=== PATIENT | female | born 1970 | race Caucasian/White ===

== ENCOUNTER 2016-05-30 14:24 | Emergency (ER) | payer OTHER ==
[~2016-05-30] VITALS: Ht 165.1 cm; Wt 104.3 kg
[~2016-05-30 14:24] MED LIST: BENZ100C PO; FLUT9.9S NS; IBUP-1007 PO; IBUP200C9 PO; SULF1TAB24 PO
[2016-05-30 14:37] VITALS: BP 131/62
[2016-05-30] MEDS ORDERED: KETOROLAC TROMETHAMINE 60 MG/2 ML SYRINGE. IM ONE (14:45)
[2016-05-30] MEDS ORDERED: IPRATRPIUM/ALBUTEROL 0.5/2.5MG 3 ML NEBU. NEB ONE (14:45)
--- NOTE | 2016-05-30 14:50 | PHYS DOC ---
Past Medical History Past Medical History: Hepatitis, Sinusitis Additional Past Medical Histor: hep C, stage 2 cirrhosis Past Surgical History: Alcohol Use: None Drug Use: Marijuana Adult General Chief Complaint Chief Complaint: COUGH HPI HPI 46 yo female presenting with worsening cough and now significant chest wall pain with deep breathing for the past 2 days. He was seen approximately one month ago and diagnosed with a viral URI for which a dose of nasal spray was ordered. Patient states now that she's had continued cough and mild shortness of breath secondary to pain with deep breathing. She states she is smoker but has not been smoking with her symptoms. She rates her pain a 6/10 on the pain scale made worse with deep breathing. She denies any significant PMH. Review of Systems Review of Systems Constitutional: Denies fever or chills [] Eyes: Denies change in visual acuity, redness, or eye pain [] HENT: Denies nasal congestion or sore throat [] Respiratory: Denies cough or shortness of breath [] Cardiovascular: No additional information not addressed in HPI [] GI: Denies abdominal pain, nausea, vomiting, bloody stools or diarrhea [] : Denies dysuria or hematuria [] Musculoskeletal: Denies back pain or joint pain [] Integument: Denies rash or skin lesions [] Neurologic: Denies headache, focal weakness or sensory changes [] Endocrine: Denies polyuria or polydipsia [] Current Medications Current Medications Current Medications Medications (Trade) Dose Ordered Sig/Rox Start Time Stop Time Status Last Admin Dose Admin Albuterol/ Ipratropium (Duoneb) 3 ml 1X ONCE 05/30/16 14:45 05/30/16 14:46 DC 05/30/16 15:13 3 ML Ketorolac Tromethamine (Toradol Im) 60 mg 1X ONCE 05/30/16 14:45 05/30/16 14:46 DC 05/30/16 14:52 60 MG Allergies Allergies Allergies Coded Allergies Type Severity Reaction Last Updated Verified Penicillins Allergy Severe Anaphylaxis 09/24/14 Yes morphine Allergy Intermediate "PARALYZED ME" 09/24/14 Yes Physical Exam Physical Exam Constitutional: Well developed, well nourished, no acute distress, non-toxic appearance. [] HENT: Normocephalic, atraumatic, bilateral external ears normal, oropharynx moist, no oral exudates, nose normal. [] Eyes: PERRLA, EOMI, conjunctiva normal, no discharge. [] Neck: Normal range of motion, no tenderness, supple, no stridor. [] Cardiovascular:Heart rate regular rhythm, no murmur [] Lungs & Thorax: Diminished bilaterally but no obvious respiratory distress [] Abdomen: Bowel sounds normal, soft, no tenderness, no masses, no pulsatile masses. [] Skin: Warm, dry, no erythema, no rash. [] Back: No tenderness, no CVA tenderness. [] Extremities: No tenderness, no cyanosis, no clubbing, ROM intact, no edema. [] Neurologic: Alert and oriented X 3, normal motor function, normal sensory function, no focal deficits noted. [] Psychologic: Affect normal, judgement normal, mood normal. [] Current Patient Data Vital Signs Vital Signs Date Time Temp Pulse Resp B/P Pulse Ox O2 Delivery O2 Flow Rate FiO2 05/30/16 15:14 95 Room Air 05/30/16 14:37 99.0 88 22 131/62 99.0 Lab Values Laboratory Tests Test 05/30/16 14:30 05/30/16 14:45 Influenza Type A Antigen Negative (NEGATIVE) Influenza Type B Antigen Negative (NEGATIVE) White Blood Count 7.1x10^3/uL (4.0-11.0) Red Blood Count 4.90x10^6/uL (3.50-5.40) Hemoglobin 14.4g/dL (12.0-15.5) Hematocrit 42.5% (36.0-47.0) Mean Corpuscular Volume 87fL (79-100) Mean Corpuscular Hemoglobin 29pg (25-35) Mean Corpuscular Hemoglobin Concent 34g/dL (31-37) Red Cell Distribution Width 13.6% (11.5-14.5) Platelet Count 245x10^3/uL (140-400) Neutrophils (%) (Auto) 62% (31-73) Lymphocytes (%) (Auto) 28% (24-48) Monocytes (%) (Auto) 7% (0-9) Eosinophils (%) (Auto) 2% (0-3) Basophils (%) (Auto) 1% (0-3) Neutrophils # (Auto) 4.4x10^3uL (1.8-7.7) Lymphocytes # (Auto) 2.0x10^3/uL (1.0-4.8) Monocytes # (Auto) 0.5x10^3/uL (0.0-1.1) Eosinophils # (Auto) 0.1x10^3/uL (0.0-0.7) Basophils # (Auto) 0.1x10^3/uL (0.0-0.2) Sodium Level 142mmol/L (136-145) Potassium Level 4.0mmol/L (3.5-5.1) Chloride Level 104mmol/L (98-107) Carbon Dioxide Level 28mmol/L (21-32) Anion Gap 10 (6-14) Blood Urea Nitrogen 14mg/dL (7-20) Creatinine 0.8mg/dL (0.6-1.0) Estimated GFR (Cockcroft-Gault) 77.6 Glucose Level 117mg/dL (70-99) H Calcium Level 9.5mg/dL (8.5-10.1) Troponin I Quantitative < 0.017ng/mL (0.000-0.055) Laboratory Tests 05/30/16 14:45 Laboratory Tests 05/30/16 14:45 EKG EKG EKG as interpreted by me shows a sinus rhythm with a approximate rate of 84 bpm. There are no acute ST findings on this EKG. There is a nonischemic EKG. Radiology/Procedures Radiology/Procedures Portable one view of the chest as interpreted by me does not demonstrate an acute cardiopulmonary process. Course & Med Decision Making Course & Med Decision Making Pertinent Labs and Imaging studies reviewed. (See chart for details) 36-year-old female is likely exhibiting chest wall tenderness secondary to an ongoing bronchitis and cough. I'll be administering a DuoNeb and giving her an IM injection of Toradol. Laboratory workup will be obtained. Her EKG at this time is unrevealing. Her risk factors are fairly low for cardiac disease. If her laboratory workup is negative, she'll be discharged with a short course of antibiotic therapy as well as an inhaler with close follow-up with her primary physician. Laboratory workup is unremarkable. Her chest x-ray does not demonstrate any acute abnormality. He'll be discharged with a course of antibiotic, inhaler, and some Tessalon Perles for her cough. I will also instruct her to continue taking Motrin and avoid smoking. She'll follow closely with her primary care doctor next several days for symptom resolution. Efrain Disclaimer Efrain Disclaimer This electronic medical record was generated, in whole or in part, using a voice recognition dictation system. Departure Departure Impression: Primary Impression: Chest wall pain Additional Impression: Cough Disposition: HOME, SELF-CARE Admitting Physician: Other Condition: STABLE Referrals: UNKNOWN PCP NAME (PCP) Patient Instructions: Chest Wall Pain, Emfw-[id number], Cough, Adult, [id number] Additional Instructions: Please use your inhaler as needed every 4-6 hours and take your medications as prescribed. Follow up with your primary doctor in the next 2-3 days. Return to the ER if you develop any worsening of your symptoms. Scripts Ibuprofen 800 Mg Maxwne178 Mg PO PRN Q6HRS PRN INFLAMMATION #20 TAB Prov:CULLEN CEDENO DO 05/30/16 Benzonatate (Tessalon Perle)100 Mg [id number] Mg PO TID PRN COUGH #15 CAP Prov:CULLEN CEDENO DO 05/30/16 Azithromycin (Zithromax)250 Mg Tablet1 Pkg PO UD #6 TAB Prov:CULLEN CEDENO DO 05/30/16 Albuterol Sulfate (Proair Hfa Inhaler)8.5 Gm Hfa.aer.ad1 Puff INH PRN Q6HRS PRN SHORTNESS OF BREATH #1 INHALER Ref 0 Prov:CULLEN CEDENO DO 05/30/16 Problem Qualifiers CULLEN CEDENO DO May 30, 2016 14:50
[2016-05-30 14:57] LABS: BASO # 0.1 x10^3/uL (0.0-0.2); BASO % 1 % (0-3); EOS % 2 % (0-3); HEMATOCRIT 42.5 % (36.0-47.0); HEMOGLOBIN 14.4 g/dL (12.0-15.5); LYMPH % 28 % (24-48); MEAN CORPUSCULAR HEMOGLOBIN 29 pg (25-35); MEAN CORPUSCULAR HGB CONC 34 g/dL (31-37); MEAN CORPUSCULAR VOLUME 87 fL (79-100); MONO % 7 % (0-9); NEUT % 62 % (31-73); PLATELET COUNT 245 x10^3/uL (140-400); RED CELL DISTRIBUTION WIDTH 13.6 % (11.5-14.5); WHITE BLOOD COUNT 7.1 x10^3/uL (4.0-11.0)
[2016-05-30 15:01] LABS: OBC FLU VALID
[2016-05-30 15:10] LABS: CALCIUM 9.5 mg/dL (8.5-10.1); CREATININE 0.8 mg/dL (0.6-1.0); GFR 77.6
--- NOTE | 2016-05-30 15:21 | RAD ---
Indication shortness of breath. Chest pain. A single view of the chest was obtained and is compared to an examination 03/18/2015. There has not been a significant change. The heart and pulmonary vessels are within normal limits. There is a calcified granuloma at the right lung base, similar. An acute parenchymal infiltrate in either lung is not seen. IMPRESSION: No acute finding. No significant change
[2016-05-30] MEDS ORDERED: AZIT250T PO (15:27)
[2016-05-30] MEDS ORDERED: PROAIR HFA8.5 GM INH (15:27)
[2016-05-30] MEDS ORDERED: IBUP-1060 PO (15:27)
[2016-05-30] MEDS ORDERED: BENZ100C PO (15:27)
--- NOTE | 2016-05-31 11:11 | EKG ---
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
== END 2016-05-30 15:43 | disposition home or self-care (01) ==
LOC: ER 14:24
DX: R07.89 Other chest pain (principal); R05 Cough; R06.02 Shortness of breath; K74.69 Other cirrhosis of liver; B19.20 Unspecified viral hepatitis C without hepatic coma; F17.210 Nicotine dependence, cigarettes, uncomplicated; Z88.0 Allergy status to penicillin; Z88.5 Allergy status to narcotic agent
CPT/HCPCS: 36415; 71010; 80048; 84484; 85027; 87804; 93005; 94640; 96372; 99285; J1885; J7620

== ENCOUNTER 2016-09-24 11:48 | Emergency (ER) | payer OTHER ==
[~2016-09-24] VITALS: Ht 165.1 cm; Wt 104.3 kg
[~2016-09-24 11:48] MED LIST changes: +AZIT250T PO; +IBUP-1060 PO; +PROAIR HFA8.5 GM INH
[2016-09-24 12:06] VITALS: BP 145/76
--- NOTE | 2016-09-24 12:45 | RAD ---
Left elbow, 3 views, 09/24/2016: History: Injury, pain No fracture or dislocation is identified. There is minimal spurring at the coronoid process. No joint effusion is evident. IMPRESSION: No acute left elbow abnormality is detected.
[2016-09-24] MEDS ORDERED: TRAM-48 PO (13:06)
[2016-09-24] MEDS ORDERED: METH-37 PO (13:06)
[2016-09-24] MEDS ORDERED: METH4TAB2 PO (13:06)
--- NOTE | 2016-09-24 13:07 | PHYS DOC ---
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 Patient denies any trauma. Patient states her job involves repetitive movements to the elbow. Patient denies any numbness or tingling to the left upper extremity. Review of Systems Review of Systems Constitutional: Denies fever or chills [] Musculoskeletal: Left elbow pain Integument: Denies rash or skin lesions [] Neurologic: Denies headache, focal weakness or sensory changes [] Endocrine: Denies polyuria or polydipsia [] Allergies Allergies Allergies Coded Allergies Type Severity Reaction Last Updated Verified Penicillins Allergy Severe Anaphylaxis 09/24/14 Yes morphine Allergy Intermediate "PARALYZED ME" 09/24/14 Yes Physical Exam Physical Exam Constitutional: Well developed, well nourished, no acute distress, non-toxic appearance. [] Skin: Warm, dry, no erythema, no rash. [] Back: No tenderness, no CVA tenderness. [] Extremities: Left elbow with no obvious edema and obvious deformity and no obvious ecchymosis. Tenderness on the lateral left elbow. Full range of motion to the left elbow. Adequate plantar flexion and dorsiflexion of the left forearm. Adequate radial medial and ulnar sensation to the left forearm. +2 left radial pulse. Cap refill less than 2 seconds the left upper extremity. Sensation intact to the left upper extremity. Neurologic: Alert and oriented X 3, normal motor function, normal sensory function, no focal deficits noted. [] Psychologic: Affect normal, judgement normal, mood normal. [] Current Patient Data Vital Signs Vital Signs Date Time Temp Pulse Resp B/P (MAP) Pulse Ox O2 Delivery O2 Flow Rate FiO2 09/24/16 12:06 98.1 86 20 96 Room Air 98.1 EKG EKG [] Radiology/Procedures Radiology/Procedures []PROCEDURE: ELBOW LEFT 3V Left elbow, 3 views, 09/24/2016: History: Injury, pain No fracture or dislocation is identified. There is minimal spurring at the coronoid process. No joint effusion is evident. IMPRESSION: No acute left elbow abnormality is detected. DICTATED and SIGNED BY: BONNIE MCDANIELS MD DATE: 09/24/16 1241 CC: NAMAN SYKES APRN; NO PCP; NON,STAFF ~ Course & Med Decision Making Course & Med Decision Making Pertinent Labs and Imaging studies reviewed. (See chart for details) Patient is in the ED left elbow pain suspicious of tendinitis. Left elbow x- rays interpreted by radiologist are negative for any acute findings. Patient was provided a sling in the ED by the alignment technician, neurovascular exam done by me post-sling application is normal. Ice elevation encouraged. Follow-up with orthopedic doctor in one week. Dragon Disclaimer Dragon Disclaimer This electronic medical record was generated, in whole or in part, using a voice recognition dictation system. Departure Departure Impression: Primary Impression: Left elbow tendonitis Disposition: HOME, SELF-CARE Condition: STABLE Referrals: NO PCP (PCP) KAMLESH ZAMORA II, MD Follow-up in one week Patient Instructions: Calcific Tendinitis Additional Instructions: You were seen for tendinitis of the left elbow. Ice and elevate the extremity. Do not leave your left upper extremity in the sling more than 1 hour. Take it out of the sling and taking it through full range of motion as well as dangle it down to prevent frozen shoulder. Follow-up with the provided orthopedic doctor in the next 7 days. Take the prescribed medicines as ordered. Scripts Methylprednisolone (MEDROL) 4 Mg Tab.ds.pk 1 PKG PO UD, #1 PKG Prov: NAMAN SYKES APRN 09/24/16 Tramadol Hcl (ULTRAM) 50 Mg Tablet 1 TAB PO Q6HRS, #30 TAB Prov: NAMAN SYKES APRN 09/24/16 Methocarbamol (ROBAXIN) 500 Mg Tablet 1 TAB PO TID, #30 TAB Prov: NAMAN SYKES APRN 09/24/16 NAMAN SYKES APRN Sep 24, 2016 13:07
== END 2016-09-24 13:15 | disposition home or self-care (01) ==
LOC: ER 11:48
DX: M77.9 Enthesopathy, unspecified (principal); F12.10 Cannabis abuse, uncomplicated; Z86.19 Personal history of other infectious and parasitic diseases; Z88.5 Allergy status to narcotic agent; Z88.0 Allergy status to penicillin
CPT/HCPCS: 73080; 99284

== ENCOUNTER 2017-02-27 02:00 | Emergency (ER) | payer OTHER ==
[~2017-02-27] VITALS: Ht 165.1 cm; Wt 102.1 kg
[~2017-02-27 02:00] MED LIST changes: +METH-37 PO; +METH4TAB2 PO; +TRAM-48 PO
[2017-02-27 02:32] VITALS: BP 118/70
[2017-02-27] MEDS ORDERED: IBUPROFEN 800 MG TABLET. PO ONE (02:45)
[2017-02-27] MEDS ORDERED: CLINDAMYCIN HCL 150 MG CAPSULE. PO ONE (02:45)
[2017-02-27] MEDS ORDERED: CLIN300C8 PO (02:48)
--- NOTE | 2017-02-27 02:48 | PHYS DOC ---
Past Medical History Past Medical History: Hepatitis, Sinusitis Additional Past Medical Histor: hep C, stage 2 cirrhosis Past Surgical History: Alcohol Use: None Drug Use: Marijuana Adult General Chief Complaint Chief Complaint: SKIN PROBLEM HPI HPI Patient is a 46 year old [f__sex] who presents with [] Review of Systems Review of Systems Constitutional: Denies fever or chills [] Eyes: Denies change in visual acuity, redness, or eye pain [] HENT: Denies nasal congestion or sore throat [] Respiratory: Denies cough or shortness of breath [] Cardiovascular: No additional information not addressed in HPI [] GI: Denies abdominal pain, nausea, vomiting, bloody stools or diarrhea [] : Denies dysuria or hematuria [] Musculoskeletal: Denies back pain or joint pain [] Integument: Denies rash or skin lesions [] Neurologic: Denies headache, focal weakness or sensory changes [] Endocrine: Denies polyuria or polydipsia [] All other systems were reviewed and found to be within normal limits, except as documented in this note. Allergies Allergies Allergies Coded Allergies Type Severity Reaction Last Updated Verified Penicillins Allergy Severe Anaphylaxis 09/24/14 Yes morphine Allergy Intermediate "PARALYZED ME" 09/24/14 Yes Physical Exam Physical Exam Constitutional: Well developed, well nourished, no acute distress, non-toxic appearance. [] HENT: Normocephalic, atraumatic, bilateral external ears normal, oropharynx moist, no oral exudates, nose normal. [] Eyes: PERRLA, EOMI, conjunctiva normal, no discharge. [] Neck: Normal range of motion, no tenderness, supple, no stridor. [] Cardiovascular:Heart rate regular rhythm, no murmur [] Lungs & Thorax: Bilateral breath sounds clear to auscultation [] Abdomen: Bowel sounds normal, soft, no tenderness, no masses, no pulsatile masses. [] Skin: Warm, dry, no erythema, no rash. [] Back: No tenderness, no CVA tenderness. [] Extremities: No tenderness, no cyanosis, no clubbing, ROM intact, no edema. [] Neurologic: Alert and oriented X 3, normal motor function, normal sensory function, no focal deficits noted. [] Psychologic: Affect normal, judgement normal, mood normal. [] Current Patient Data Vital Signs Vital Signs Date Time Temp Pulse Resp B/P (MAP) Pulse Ox O2 Delivery O2 Flow Rate FiO2 02/27/17 02:32 97.6 75 20 94 Room Air 97.6 EKG EKG [] Radiology/Procedures Radiology/Procedures [] Course & Med Decision Making Course & Med Decision Making Pertinent Labs and Imaging studies reviewed. (See chart for details) [] Dragon Disclaimer Dragon Disclaimer This electronic medical record was generated, in whole or in part, using a voice recognition dictation system. Departure Departure Impression: Primary Impression: Cellulitis Additional Impression: Leg pain Disposition: HOME, SELF-CARE Condition: GOOD Referrals: UNKNOWN PCP NAME (PCP) Patient Instructions: Cellulitis Additional Instructions: It appears that you're evolving cellulitis of your left leg. Cellulitis is a skin infection. As you're vital signs are unremarkable and do not show signs of being systemically ill, it is appropriate and typical to treat shoe as an outpatient today. You been given a dose of antibiotics as well as anti- inflammatory medication in the ED. Finish clindamycin as prescribed 4 times a day for 10 days. Take ibuprofen 800 mg every 6 hours as needed for discomfort. Follow-up with your doctor in 1 day and return immediately for new severe or worsening symptoms, specifically for signs of worsening infection especially with fevers. Scripts Clindamycin Hcl (CLINDAMYCIN HCL) 300 Mg Capsule 300 MG PO QID for 10 Days, #40 CAP Prov: CHINA OH MD 02/27/17 Problem Qualifiers CHINA OH MD Feb 27, 2017 02:48
== END 2017-02-27 03:05 | disposition home or self-care (01) ==
LOC: ER 02:00
DX: L03.116 Cellulitis of left lower limb (principal); Z88.0 Allergy status to penicillin; Z88.5 Allergy status to narcotic agent
CPT/HCPCS: 99283

== ENCOUNTER 2017-03-12 11:42 | Emergency (ER) | payer OTHER ==
[~2017-03-12] VITALS: Ht 165.1 cm; Wt 102.1 kg
[~2017-03-12 11:42] MED LIST changes: +CLIN300C8 PO
[2017-03-12 12:21] VITALS: BP 147/59
[2017-03-12] MEDS ORDERED: IPRATRPIUM/ALBUTEROL 0.5/2.5MG 3 ML NEBU. NEB ONE (12:45)
[2017-03-12] MEDS ORDERED: predniSONE 10 MG TABLET PO ONE (12:45)
[2017-03-12] MEDS ORDERED: BENZONATATE 100 MG CAPSULE. PO ONE (12:45)
--- NOTE | 2017-03-12 13:12 | RAD ---
Chest, 2 views, 03/12/2017: History: Cough and cold symptoms Comparison is made to a study from 05/30/2016. The heart size and pulmonary vascularity are normal. There is an unchanged right basilar pulmonary nodule, most likely representing a granuloma. No acute infiltrates are seen. There is no evidence of pleural fluid. IMPRESSION: No acute cardiopulmonary abnormality is detected.
[2017-03-12 13:14] LABS: POTASSIUM ISTAT 4.2 mmol/L (3.5-5.0)
[2017-03-12 13:31] LABS: BILIRUBIN,URINE NEGATIVE (NEG); GLUCOSE,URINE NEGATIVE (NEG); NITRITE,URINE NEGATIVE (NEG); PROTEIN,URINE NEGATIVE (NEG-TRACE)
[2017-03-12 14:02] LABS: RBC,URINE OCC /HPF (0-2)
[2017-03-12 14:03] LABS: BACTERIA,URINE FEW /HPF (0-FEW); SQUAMOUS EPITHELIAL CELL,UR MANY /LPF; WBC,URINE 0 /HPF (0-4)
[2017-03-12] MEDS ORDERED: PROAIR HFA8.5 GM INH (14:12)
[2017-03-12] MEDS ORDERED: AZIT250T6 PO (14:12)
[2017-03-12] MEDS ORDERED: PRED50TA PO (14:12)
[2017-03-12] MEDS ORDERED: BENZ100C PO (14:12)
--- NOTE | 2017-03-12 14:12 | PHYS DOC ---
Past Medical History Past Medical History: Hepatitis, Sinusitis Additional Past Medical Histor: hep C, stage 2 cirrhosis Past Surgical History: Additional Information: 1/2 PACK/DAY Alcohol Use: None Drug Use: None Adult General Chief Complaint Chief Complaint: COUGH HPI HPI Patient is a 46 year old female who presents with cough & diarrhea. She reports 3 week history of productive cough, also this week has loose stools daily x 7 days. She reports nasal congestion & sore throat. Denies fevers/ chills, shortness of breath, chest pain, abdominal pain, nausea, vomiting, dysuria, hematuria. Denies recent travel or antibiotics. Current daily smoker , no known cardiac or lung disease. Review of Systems Review of Systems Constitutional: Denies fever or chills Eyes: Denies change in visual acuity HENT: Reports nasal congestion & sore throat Respiratory: Reports cough, denies shortness of breath Cardiovascular: Denies chest pain or edema GI: Denies abdominal pain, nausea, vomiting, bloody stools, reports : Denies dysuria or hematuria Musculoskeletal: Denies back pain or joint pain Integument: Denies rash or skin lesions Neurologic: Denies headache, focal weakness or sensory changes All other systems were reviewed and found to be within normal limits, except as documented in this note. Current Medications Current Medications Current Medications Medications (Trade) Dose Ordered Sig/Rox Start Time Stop Time Status Last Admin Dose Admin Albuterol/ Ipratropium (Duoneb) 3 ml 1X ONCE 03/12/17 12:45 03/12/17 12:46 DC 03/12/17 13:46 3 ML Benzonatate (Tessalon Perle) 100 mg 1X ONCE 03/12/17 12:45 03/12/17 12:46 DC 03/12/17 13:16 100 MG Prednisone (Prednisone) 50 mg 1X ONCE 03/12/17 12:45 03/12/17 12:46 DC 03/12/17 13:16 50 MG Allergies Allergies Allergies Coded Allergies Type Severity Reaction Last Updated Verified Penicillins Allergy Severe Anaphylaxis 09/24/14 Yes morphine Allergy Intermediate "PARALYZED ME" 09/24/14 Yes Physical Exam Physical Exam Constitutional: obese, no acute distress, non-toxic appearance. HENT: Normocephalic, atraumatic, bilateral external ears normal, oropharynx moist, nose normal. no tonsillar enlargement/exudate. Eyes: PERRLA, EOMI, conjunctiva normal, no discharge. Neck: supple, no stridor. no meningismus Cardiovascular: RRR, no murmurs, no edema. Lungs & Thorax: LCTAB, no wheezing, no respiratory distress. frequent cough. Abdomen: soft, nontender, nondistended. Skin: Warm, dry, no erythema, no rash. Back: No tenderness. Extremities: No tenderness, no edema. no calf tenderness or swelling. Neurologic: Alert and oriented X 3, no focal deficits noted. Psychologic: Affect normal, judgement normal, mood normal. Current Patient Data Vital Signs Vital Signs Date Time Temp Pulse Resp B/P (MAP) Pulse Ox O2 Delivery O2 Flow Rate FiO2 03/12/17 13:46 95 Room Air 03/12/17 12:21 97.9 82 18 97.9 Lab Values Laboratory Tests Test 03/12/17 12:57 03/12/17 13:03 03/12/17 13:10 Urine Collection Type Unknown Urine Color Yellow Urine Clarity Clear Urine pH 7.0 Urine Specific [place] 1.025 Urine Protein Negative mg/dL (NEG-TRACE) Urine Glucose (UA) Negative mg/dL (NEG) Urine Ketones (Stick) Negative mg/dL (NEG) Urine Blood Negative (NEG) Urine Nitrite Negative (NEG) Urine Bilirubin Negative (NEG) Urine Urobilinogen Dipstick 1.0 mg/dL (0.2 mg/dL) Urine Leukocyte Esterase Negative (NEG) Urine RBC Occ /HPF (0-2) Urine WBC 0 /HPF (0-4) Urine Squamous Epithelial Cells Many /LPF Urine Bacteria Few /HPF (0-FEW) Urine Mucus Marked /LPF POC Urine HCG, Qualitative Hcg negative (Negative) POC Hemoglobin 14.6 g/dL (12-15) POC Hematocrit 43 % (36-40) H POC Sodium 140 mmol/L (135-145) POC Potassium 4.2 mmol/L (3.5-5.0) POC Chloride 108 mmol/L (98-110) POC Total CO2 25 mmol/L (23-32) Anion Gap 13 mmol/L (6-14) POC Blood Urea Nitrogen 16 mg/dL (8-26) POC Creatinine 0.6 mg/dL (0.5-1.4) Glucose Level 111 mg/dL (70-99) H POC Ionized Calcium (Arian) 1.14 mmol/L (1.13-1.32) Laboratory Tests 03/12/17 13:10 EKG EKG [] Radiology/Procedures Radiology/Procedures PROCEDURE: CHEST PA & LATERAL Chest, 2 views, 03/12/2017: History: Cough and cold symptoms Comparison is made to a study from 05/30/2016. The heart size and pulmonary vascularity are normal. There is an unchanged right basilar pulmonary nodule, most likely representing a granuloma. No acute infiltrates are seen. There is no evidence of pleural fluid. IMPRESSION: No acute cardiopulmonary abnormality is detected. DICTATED and SIGNED BY: BONNIE MCDANIELS MD DATE: 03/12/17 1307[] Course & Med Decision Making Course & Med Decision Making Pertinent Labs and Imaging studies reviewed. (See chart for details) The patient presents with cough & diarrhea. Gave medication in the ED, obtained labs, UA, CXR. No serious abnormality identified & she felt better after nebulized breathing treatment. Recommend rest, hydration, tylenol/ ibuprofen for pain or fever, gave prescriptions for albuterol, tessalon perles, prednisone burst, & z pack. Counseled regarding smoking cessation. Follow up with primary care in 2-3 days, come back for high fever, severe chest pain or shortness of breath, any otherwise worsening condition. Discharged home in stable condition. [] Dragon Disclaimer Dragon Disclaimer This electronic medical record was generated, in whole or in part, using a voice recognition dictation system. Departure Departure Impression: Primary Impression: Bronchitis Disposition: 01 HOME, SELF-CARE Condition: STABLE Referrals: UNKNOWN PCP NAME (PCP) JOSE M ESQUIVEL MD Patient Instructions: Acute Bronchitis, Anrq-cp-[id number], Diarrhea, Krju-iw-Jwzv, Smoking, You Can Quit, Thle-jj-Fofz Additional Instructions: You were seen in the emergency department today for cough and diarrhea. Your x- ray did not show pneumonia. Please rest, drink fluids, take Tylenol or ibuprofen for pain or fever, use inhaler as needed for cough or wheezing, take Tessalon Perles for cough, take prednisone and antibiotics as prescribed. You may use Imodium for diarrhea. Follow-up with primary care physician such as Dr. Esquivel in 2-3 days. Return to the emergency department for high fever, severe chest pain or shortness of breath, severe abdominal pain, uncontrolled vomiting , any otherwise worsening condition. Scripts Benzonatate (TESSALON PERLE) 100 Mg Capsule 100 MG PO TID Y for COUGH, #15 CAP Prov: BEN HENAO MD 03/12/17 Azithromycin (AZITHROMYCIN TABLET) 250 Mg Tablet 1 PKG PO UD, #6 TAB Prov: BEN HENAO MD 03/12/17 Prednisone (PREDNISONE) 50 Mg Tablet 1 TAB PO DAILY, #5 TAB Prov: BEN HENAO MD 03/12/17 Albuterol Sulfate (PROAIR HFA INHALER) 8.5 Gm Hfa.aer.ad 1 PUFF INH PRN Q6HRS Y for SHORTNESS OF BREATH, #1 INHALER 0 Refills Prov: BEN HENAO MD 03/12/17 BEN HENAO MD Mar 12, 2017 14:12
== END 2017-03-12 14:50 | disposition home or self-care (01) ==
LOC: ER 11:42
DX: J40 Bronchitis, not specified as acute or chronic (principal); R19.7 Diarrhea, unspecified; F17.200 Nicotine dependence, unspecified, uncomplicated; E66.9 Obesity, unspecified; Z88.5 Allergy status to narcotic agent; Z88.0 Allergy status to penicillin; Z68.37 Body mass index [BMI] 37.0-37.9, adult
CPT/HCPCS: 36415; 71020; 80047; 81001; 81025; 85014; 85018; 94250; 94640; 99285; J7512; J7620

== ENCOUNTER 2018-02-06 09:49 | Inpatient (IN) | payer OTHER ==
[~2018-02-06] VITALS: Ht 172.7 cm; Wt 116.1 kg
[~2018-02-06 09:49] MED LIST changes: +AZIT250T6 PO; +PRED50TA PO
[2018-02-06] MEDS ORDERED: fentaNYL PF VIAL 100 MCG/2 ML VIAL IV ONE (10:15)
[2018-02-06] MEDS ORDERED: IPRATRPIUM/ALBUTEROL 0.5/2.5MG 3 ML NEBU. NEB ONE (10:15)
[2018-02-06] MEDS ORDERED: predniSONE 10 MG TABLET PO ONE (10:15)
[2018-02-06] MEDS ORDERED: IV NORMAL SALINE 1000ML BAG 1,000 ML IV ONE (10:15)
[2018-02-06] MEDS ORDERED: ASPIRIN CHEWABLE 81 MG TABLET. PO ONE (10:15)
[2018-02-06 10:20] LABS: BASO # 0.1 x10^3/uL (0.0-0.2); BASO % 1 % (0-3); EOS # 0.2 x10^3/uL (0.0-0.7); EOS % 2 % (0-3); HEMATOCRIT 43.7 % (36.0-47.0); HEMOGLOBIN 15.3 g/dL (12.0-15.5); LYMPH # 2.2 x10^3/uL (1.0-4.8); LYMPH % 25 % (24-48); MEAN CORPUSCULAR HEMOGLOBIN 30 pg (25-35); MEAN CORPUSCULAR HGB CONC 35 g/dL (31-37); MEAN CORPUSCULAR VOLUME 86 fL (79-100); MONO # 0.5 x10^3/uL (0.0-1.1); MONO % 6 % (0-9); NEUT # 5.9 x10^3uL (1.8-7.7); NEUT % 66 % (31-73); PLATELET COUNT 297 x10^3/uL (140-400); RED CELL DISTRIBUTION WIDTH 14.5 % (11.5-14.5); WHITE BLOOD COUNT 8.9 x10^3/uL (4.0-11.0)
[2018-02-06 10:30] LABS: CALCIUM 9.3 mg/dL (8.5-10.1); CREATININE 0.8 mg/dL (0.6-1.0); GFR 77.2; POTASSIUM 4.6 mmol/L (3.5-5.1)
--- NOTE | 2018-02-06 10:35 | RAD ---
Examination: PORTABLE CHEST 1V History: SOB SINCE LAST NIGHT PAIN IN RIGHT SIDE AND BACK TODAY. Comparison/Correlation: 03/12/2017 two-view chest x-ray exam Findings: Portable upright frontal view of the chest was obtained. Heart size and pulmonary vasculature are normal. No infiltrate or pleural effusion. Bony structures are unremarkable. No pneumothorax. Impression: No active disease. Electronically signed by: Alejandro Pelletier MD (02/06/2018 10:32 AM) [facility]
--- NOTE | 2018-02-06 10:45 | PHYS DOC ---
Past Medical History Past Medical History: Hepatitis, Sinusitis Additional Past Medical Histor: hep C, stage 2 cirrhosis Past Surgical History: Additional Information: 1/2 PACK A DAY Alcohol Use: None Drug Use: None Adult General Chief Complaint Chief Complaint: CHEST PAIN HPI HPI Patient is a 47 year old female who presents with chest pain. Patient had onset of right-sided pectoralis and chest pain and right-sided lateral rib pain last evening before she went to bed. Pain caused her to feel short of breath. Pain is worse when she takes a deep breath. Pain did not radiate to the jaw or left shoulder. She does have some known history of bronchitis for which she uses inhalers at home. She used her inhalers but these did not seem to make a difference. She did go to bed and slept all night. She awoke this morning and continued to have some perceived shortness of breath and some pain so she decided to come to the ER. No productive cough. No fever. No recent travel. No control use. Denies prior history of coronary artery disease. She is a tobacco smoker. Review of Systems Review of Systems Constitutional: Denies fever Eyes: Denies change in visual acuity HENT: Denies congestion Respiratory: Denies cough or shortness of breath Cardiovascular: No additional information not addressed in HPI GI: Denies abdominal pain Musculoskeletal: Denies back pain Integument: Denies rash Neurologic: Denies headache All other systems were reviewed and found to be within normal limits, except as documented in this note. Current Medications Current Medications Current Medications Medications (Trade) Dose Ordered Sig/Rox Start Time Stop Time Status Last Admin Dose Admin Albuterol/ Ipratropium (Duoneb) 3 ml 1X ONCE 02/06/18 10:15 02/06/18 10:16 DC 02/06/18 10:24 3 ML Aspirin (Children'S Aspirin) 324 mg 1X ONCE 02/06/18 10:15 02/06/18 10:16 DC 02/06/18 10:47 324 MG Fentanyl Citrate (Fentanyl 2ml Vial) 75 mcg 1X ONCE 02/06/18 10:15 02/06/18 10:16 DC 02/06/18 10:48 75 MCG Info (CONTRAST GIVEN -- Rx MONITORING) 1 each PRN DAILY PRN 02/06/18 11:45 02/08/18 11:44 Iohexol (Omnipaque 300 Mg/ml) 75 ml 1X ONCE 02/06/18 11:30 02/06/18 11:31 DC 02/06/18 11:30 75 ML Prednisone (Prednisone) 50 mg 1X ONCE 02/06/18 10:15 02/06/18 10:16 DC 02/06/18 10:46 50 MG Sodium Chloride 1,000 ml @ 1,000 mls/hr 1X ONCE 02/06/18 10:15 02/06/18 11:14 DC 02/06/18 10:15 1,000 MLS/HR Allergies Allergies Allergies Coded Allergies Type Severity Reaction Last Updated Verified Penicillins Allergy Severe Anaphylaxis 09/24/14 Yes morphine Allergy Intermediate "PARALYZED ME" 09/24/14 Yes Physical Exam Physical Exam Constitutional: Well developed, well nourished, no acute distress, non-toxic appearance HENT: Normocephalic, atraumatic, bilateral external ears normal, oropharynx moist Eyes: PERRLA, EOMI, conjunctiva normal Neck: Normal range of motion Cardiovascular:Heart rate regular rhythm, no murmur Lungs & Thorax: Bilateral breath sounds clear to auscultation, TTP over right pectoralis muscle and rib cage just inferior to scapula Abdomen: Bowel sounds normal, soft Skin: Warm, dry, no erythema, no rash Extremities: No edema Neurologic: Alert and oriented X 3 Psychologic: Affect normal Current Patient Data Vital Signs Vital Signs Date Time Temp Pulse Resp B/P (MAP) Pulse Ox O2 Delivery O2 Flow Rate FiO2 02/06/18 10:48 20 93 02/06/18 10:27 Room Air 02/06/18 10:05 97.7 82 154/68 (96) 97.7 Lab Values Laboratory Tests Test 02/06/18 10:05 White Blood Count 8.9 x10^3/uL (4.0-11.0) Red Blood Count 5.10 x10^6/uL (3.50-5.40) Hemoglobin 15.3 g/dL (12.0-15.5) Hematocrit 43.7 % (36.0-47.0) Mean Corpuscular Volume 86 fL (79-100) Mean Corpuscular Hemoglobin 30 pg (25-35) Mean Corpuscular Hemoglobin Concent 35 g/dL (31-37) Red Cell Distribution Width 14.5 % (11.5-14.5) Platelet Count 297 x10^3/uL (140-400) Neutrophils (%) (Auto) 66 % (31-73) Lymphocytes (%) (Auto) 25 % (24-48) Monocytes (%) (Auto) 6 % (0-9) Eosinophils (%) (Auto) 2 % (0-3) Basophils (%) (Auto) 1 % (0-3) Neutrophils # (Auto) 5.9 x10^3uL (1.8-7.7) Lymphocytes # (Auto) 2.2 x10^3/uL (1.0-4.8) Monocytes # (Auto) 0.5 x10^3/uL (0.0-1.1) Eosinophils # (Auto) 0.2 x10^3/uL (0.0-0.7) Basophils # (Auto) 0.1 x10^3/uL (0.0-0.2) Prothrombin Time 13.0 SEC (11.7-14.0) Prothrombin Time INR 1.0 (0.8-1.1) PTT 32 SEC (24-38) D-Dimer (Larisa) 0.62 ug/mlFEU (0.00-0.50) H Sodium Level 140 mmol/L (136-145) Potassium Level 4.6 mmol/L (3.5-5.1) Chloride Level 104 mmol/L (98-107) Carbon Dioxide Level 29 mmol/L (21-32) Anion Gap 7 (6-14) Blood Urea Nitrogen 16 mg/dL (7-20) Creatinine 0.8 mg/dL (0.6-1.0) Estimated GFR (Cockcroft-Gault) 77.2 Glucose Level 86 mg/dL (70-99) Calcium Level 9.3 mg/dL (8.5-10.1) Troponin I Quantitative < 0.017 ng/mL (0.000-0.055) LF-Hef-E-Type Natriuretic Peptide 23 pg/mL (0-124) Laboratory Tests 02/06/18 10:05 Laboratory Tests 02/06/18 10:05 EKG EKG No STEMI Interpretation Time: 10:00 Radiology/Procedures Radiology/Procedures CXR: no acute findings CT Angio Chest: Findings: Axial images of the chest were obtained following 75 cc Omnipaque 300 IV. Sagittal and coronal reformatted images were provided. Sagittal and coronal MIP images were provided. Pulmonary arterial vasculature is normal with no thromboembolic disease. Moderate size right-sided pneumothorax. No definite or significant tension component. No enlarged thoracic lymph nodes. Calcified superior mediastinal lymph nodes are present. Aberrant right subclavian artery is present with a retroesophageal course. No infiltrates. Calcified granuloma involves the right lung base. Fatty infiltration of the liver is suspected. Bony structures are unremarkable. Impression: Moderate size right-sided pneumothorax. No pulmonary arterial thrombus embolic disease. Course & Med Decision Making Course & Med Decision Making Pertinent Labs and Imaging studies reviewed. (See chart for details) 10:30: Patient is seen and examined. ACS workup ordered. Aspirin. Fentanyl for pain. Lungs clear but duoneb ordered to eval for subjective improvement. EKG is non-acute. Patient was evaluated in the emergency department for sudden onset of some right -sided chest pain. He, the patient had recently had a skin biopsy taken from that portion of her chest. She had a well-healing wound over the right superior chest. The wound was superficial however and not likely secondary to her presenting complaint. In the emergency department, standard coronary workup was completed. Troponin was 0.017 and not elevated. D-dimer was mildly elevated. CT angiography was completed of the chest to rule out pulmonary embolism. The patient did not have any blood clot but she was incidentally found to have a moderate size pneumothorax. This was not initially seen on the presenting chest x-ray although upon a second read it was there according to radiology. So the pneumothorax did not occur in the hospital. During the ED course, the patient remained very stable. She had no oxygen requirement. She had no dyspnea. Given this, no immediate chest tube was placed. The patient is stable for consult with interventional radiology tomorrow. I also spoke to Dr. Pollack who did evaluate the patient on the floor today. There were no acute events during the ED course although the patient did have some significant amount of anxiety when I discussed her diagnosis with her. Some when necessary Ativan was added to help with the symptoms. Dragon Disclaimer Dragon Disclaimer This electronic medical record was generated, in whole or in part, using a voice recognition dictation system. Departure Departure Referrals: UNKNOWN PCP NAME (PCP) KIKI LYONS DO Feb 06, 2018 10:45
[2018-02-06 10:47] LABS: D-DIMER 0.62 ug/mlFEU (0.00-0.50)
[2018-02-06] MEDS ORDERED: IOHEXOL 300 MG/ML 100ML VIAL. IV ONE (11:30)
[2018-02-06] MEDS ORDERED: CONTRAST GIVEN. MC PRN (11:45)
--- NOTE | 2018-02-06 12:26 | RAD ---
Examination: CT ANGIOGRAPHY CHEST History: Cough, CP, Dyspnea, Elevated dimer. Eval for PE
IV OMNI 300 75 MLS
Comparison/Correlation: None Findings: Axial images of the chest were obtained following 75 cc Omnipaque 300 IV. Sagittal and coronal reformatted images were provided. Sagittal and coronal MIP images were provided. Pulmonary arterial vasculature is normal with no thromboembolic disease. Moderate size right-sided pneumothorax. No definite or significant tension component. No enlarged thoracic lymph nodes. Calcified superior mediastinal lymph nodes are present. Aberrant right subclavian artery is present with a retroesophageal course. No infiltrates. Calcified granuloma involves the right lung base. Fatty infiltration of the liver is suspected. Bony structures are unremarkable. Impression: Moderate size right-sided pneumothorax. No pulmonary arterial thrombus embolic disease. Discussed with Dr. Mckeon of the emergency Department on 02/06/2018 at 12:23 PM. Electronically signed by: Alejandro Pleletier MD (02/06/2018 12:24 PM) [facility]
[2018-02-06] MEDS ORDERED: IBUPROFEN 400 MG TABLET. PO ONE (12:45)
[2018-02-06] MEDS ORDERED: HYDROcodone/APAP 5/325MG 1 TAB TABLET PO ONE (12:45)
[2018-02-06] MEDS ORDERED: ONDANSETRON PF 4 MG/2 ML VIAL. IV PRN ×2 (13:00→14:15)
[2018-02-06] MEDS ORDERED: fentaNYL PF VIAL 100 MCG/2 ML VIAL IV PRN (13:00)
[2018-02-06 14:10] VITALS: BP 131/63
[2018-02-06] MEDS ORDERED: KETOROLAC 15 MG/ML VIAL. IV PRN (14:15)
[2018-02-06] MEDS ORDERED: ACETAMINOPHEN/CODEINE 300/30MG TABLET. PO PRN (14:15)
[2018-02-06] MEDS ORDERED: diphenhydrAMINE HCL 25 MG CAPSULE PO PRN (14:15)
[2018-02-06] MEDS ORDERED: ACETAMINOPHEN 500 MG TABLET PO PRN (14:15)
[2018-02-06] MEDS ORDERED: NICOTINE 21MG PATCH. TD PRN (14:15)
[2018-02-06] MEDS ORDERED: guaiFENesin DM 200MG/20MG 10 ML SYRUP PO PRN (14:15)
--- NOTE | 2018-02-06 14:35 | PDOC1 ---
History and Physical Date of Admission Date of Admission DATE: 02/06/18 TIME: 14:32 Identification/Chief Complaint Chief Complaint Could not breathe Source Source: Caregiver, Chart review, Patient History of Present Illness History of Present Illness [age]-year-old obese female who continues to smoke less than a pack-a- day, only takes clonazepam when necessary and Lexapro. Acute onset of SOA started last night. No cough, no fever, associated with significant chest pain. She could not sleep, she was afraid to lay down she could not breathe. When symptoms persisted she went to the emergency room and imaging shows a moderate size pneumothorax hence admitted. Pulmonary consulted. Planned for IR chest tube placement and chest x-ray tomorrow is no better Did advise her to stop smoking, multiple family members at bedside and seconds my motion She may be thinking about it on discharge Denies any trauma to the right side of the chest Past Medical History Psych: Depression Past Surgical History Past Surgical History: No pertinent history Family History Family History: No Significant Social History Smoke: <1 pack per day ALCOHOL: none Drugs: None Current Problem List Problem List Problems Medical Problems: (1) COPD (chronic obstructive pulmonary disease) Status: Acute (2) Spontaneous pneumothorax Status: Acute Current Medications Current Medications Current Medications Albuterol/ Ipratropium (Duoneb) 3 ml 1X ONCE NEB Last administered on at 10:24; Start 02/06/18 at 10:15; Stop 02/06/18 at 10:16; Status DC Aspirin (Children'S Aspirin) 324 mg 1X ONCE PO Last administered on at 10:47; Start 02/06/18 at 10:15; Stop 02/06/18 at 10:16; Status DC Prednisone (Prednisone) 50 mg 1X ONCE PO Last administered on 02/06/18at 10:46 ; Start 02/06/18 at 10:15; Stop 02/06/18 at 10:16; Status DC Fentanyl Citrate (Fentanyl 2ml Vial) 75 mcg 1X ONCE IV Last administered on at 10:48; Start 02/06/18 at 10:15; Stop 02/06/18 at 10:16; Status DC Sodium Chloride 1,000 ml @ 1,000 mls/hr 1X ONCE IV Last administered on 02/06at 10:15; Start 02/06/18 at 10:15; Stop 02/06/18 at 11:14; Status DC Iohexol (Omnipaque 300 Mg/ml) 75 ml 1X ONCE IV Last administered on at 11:30; Start 02/06/18 at 11:30; Stop 02/06/18 at 11:31; Status DC Info (CONTRAST GIVEN -- Rx MONITORING) 1 each PRN DAILY PRN MC SEE COMMENTS; Start 02/06/18 at 11:45; Stop 02/08/18 at 11:44 Ibuprofen (Motrin) 800 mg 1X ONCE PO Last administered on 02/06/18at 13:08; Start 02/06/18 at 12:45; Stop 02/06/18 at 12:46; Status DC Acetaminophen/ Hydrocodone Bitart (Lortab 5/325) 2 tab 1X ONCE PO Last administered on 02/06/18at 13:08; Start 02/06/18 at 12:45; Stop 02/06/18 at 12 :46; Status DC Ondansetron HCl (Zofran) 4 mg PRN Q8HRS PRN IV NAUSEA/VOMITING; Start at 13:00; Stop 02/06/18 at 14:09; Status DC Fentanyl Citrate (Fentanyl 2ml Vial) 50 mcg PRN Q1HR PRN IV PAIN; Start at 13:00; Stop 02/07/18 at 12:59 Sodium Chloride 1,000 ml @ 100 mls/hr Q10H IV ; Start 02/06/18 at 23:50; Stop 02/07/18 at 23:49 Lorazepam (Ativan) 0.5 mg PRN Q3HRS PRN IV ANXIETY; Start 02/06/18 at 14:00 Ondansetron HCl (Zofran) 4 mg PRN Q6HRS PRN IV NAUSEA/VOMITING; Start at 14:15 Ketorolac Tromethamine (Toradol 15mg Vial) 15 mg PRN Q6HRS PRN IV PAIN MODERATE ; Start 02/06/18 at 14:15; Stop 02/11/18 at 14:14 Acetaminophen (Tylenol) 500 mg PRN Q6HRS PRN PO MILD PAIN / TEMP; Start at 14:15 Acetaminophen/ Codeine Phosphate (Tylenol #3) 1 tab PRN Q6HRS PRN PO PAIN; Start 02/06/18 at 14:15; Status UNV Diphenhydramine HCl (Benadryl) 25 mg PRN QHS PRN PO INSOMNIA; Start 02/06/18 at 14:15 Nicotine (Nicoderm Cq 21mg) 1 patch PRN DAILY PRN TD SMOKING CESSATION; Start 02/06/18 at 14:15 Guaifenesin (Robitussin Dm) 10 ml PRN Q6HRS PRN PO COUGH; Start 02/06/18 at 14 :15 Active Scripts Active Tessalon Perle (Benzonatate) 100 Mg Capsule 100 Mg PO TID PRN Azithromycin Tablet (Azithromycin) 250 Mg Tablet 1 Pkg PO UD Prednisone 50 Mg Tablet 1 Tab PO DAILY Proair Hfa Inhaler (Albuterol Sulfate) 8.5 Gm Hfa.aer.ad 1 Puff INH PRN Q6HRS PRN Clindamycin Hcl 300 Mg Capsule 300 Mg PO QID 10 Days Medrol (Methylprednisolone) 4 Mg Tab.ds.pk 1 Pkg PO UD Ultram (Tramadol Hcl) 50 Mg Tablet 1 Tab PO Q6HRS Robaxin (Methocarbamol) 500 Mg Tablet 1 Tab PO TID Ibuprofen 800 Mg Tablet 800 Mg PO PRN Q6HRS PRN Tessalon Perle (Benzonatate) 100 Mg Capsule 100 Mg PO TID PRN Zithromax (Azithromycin) 250 Mg Tablet 1 Pkg PO UD Proair Hfa Inhaler (Albuterol Sulfate) 8.5 Gm Hfa.aer.ad 1 Puff INH PRN Q6HRS PRN Tessalon Perle (Benzonatate) 100 Mg Capsule 100 Mg PO TID PRN Flonase Allergy Relief (Fluticasone Propionate) 9.9 Ml [place].susp 2 Sprays NS DAILY Bactrim Ds Tablet (Sulfamethoxazole/Trimethoprim) 1 Each Tablet 1 Tab PO BID Ibuprofen 600 Mg Tablet 600 Mg PO PRN Q6HRS PRN Reported Advil (Ibuprofen) 200 Mg Capsule 200 Mg PO Allergies Allergies: Coded Allergies: Penicillins (Verified Allergy, Severe, Anaphylaxis, 09/24/14) morphine (Verified Allergy, Intermediate, "PARALYZED ME", 09/24/14) ROS Review of System As per history of present illness, the rest of ROS 14 point negative Physical Exam General: Alert, Oriented X3, Cooperative, No acute distress HEENT: Atraumatic, PERRLA Lungs: Normal air movement, Other (no wheezing, hyperresonance on right side of the chest,) Heart: S1S2, RRR, no thrills, no rubs Cardiovascular: S1, S2 Breasts: Normal, Rt breast nml w/o mass, Lt breast nml w/o mass, Nipples normal Abdomen: Normal bowel sounds, Soft, No tenderness, No hepatosplenomegaly, No masses Rectal Exam: not examined PELVIC: Nml ext genitalia Extremities: No clubbing, No cyanosis, No edema, Normal pulses, No tenderness/ swelling Skin: No rashes, No breakdown, No significant lesion Neuro: Normal gait, Normal speech, Strength at 5/5 X4 ext, Normal tone, Sensation intact, Cranial nerves 3-12 NL, Reflexes 2+ Psych/Mental Status: Mental status NL, Mood NL Vitals Vitals Vital Signs Date Time Temp Pulse Resp B/P (MAP) Pulse Ox O2 Delivery O2 Flow Rate FiO2 02/06/18 13:48 74 97 NonRebreather Mask 02/06/18 13:10 18 159/71 (100) 15.0 02/06/18 10:05 97.7 97.7 Labs Labs Laboratory Tests Test 02/06/18 10:05 White Blood Count 8.9 x10^3/uL (4.0-11.0) Red Blood Count 5.10 x10^6/uL (3.50-5.40) Hemoglobin 15.3 g/dL (12.0-15.5) Hematocrit 43.7 % (36.0-47.0) Mean Corpuscular Volume 86 fL (79-100) Mean Corpuscular Hemoglobin 30 pg (25-35) Mean Corpuscular Hemoglobin Concent 35 g/dL (31-37) Red Cell Distribution Width 14.5 % (11.5-14.5) Platelet Count 297 x10^3/uL (140-400) Neutrophils (%) (Auto) 66 % (31-73) Lymphocytes (%) (Auto) 25 % (24-48) Monocytes (%) (Auto) 6 % (0-9) Eosinophils (%) (Auto) 2 % (0-3) Basophils (%) (Auto) 1 % (0-3) Neutrophils # (Auto) 5.9 x10^3uL (1.8-7.7) Lymphocytes # (Auto) 2.2 x10^3/uL (1.0-4.8) Monocytes # (Auto) 0.5 x10^3/uL (0.0-1.1) Eosinophils # (Auto) 0.2 x10^3/uL (0.0-0.7) Basophils # (Auto) 0.1 x10^3/uL (0.0-0.2) Prothrombin Time 13.0 SEC (11.7-14.0) Prothromb Time International Ratio 1.0 (0.8-1.1) Activated Partial Thromboplast Time 32 SEC (24-38) D-Dimer (Larisa) 0.62 ug/mlFEU (0.00-0.50) Sodium Level 140 mmol/L (136-145) Potassium Level 4.6 mmol/L (3.5-5.1) Chloride Level 104 mmol/L (98-107) Carbon Dioxide Level 29 mmol/L (21-32) Anion Gap 7 (6-14) Blood Urea Nitrogen 16 mg/dL (7-20) Creatinine 0.8 mg/dL (0.6-1.0) Estimated GFR (Cockcroft-Gault) 77.2 Glucose Level 86 mg/dL (70-99) Calcium Level 9.3 mg/dL (8.5-10.1) Troponin I Quantitative < 0.017 ng/mL (0.000-0.055) TW-Vzt-O-Type Natriuretic Peptide 23 pg/mL (0-124) Laboratory Tests Test 02/06/18 10:05 White Blood Count 8.9 x10^3/uL (4.0-11.0) Red Blood Count 5.10 x10^6/uL (3.50-5.40) Hemoglobin 15.3 g/dL (12.0-15.5) Hematocrit 43.7 % (36.0-47.0) Mean Corpuscular Volume 86 fL (79-100) Mean Corpuscular Hemoglobin 30 pg (25-35) Mean Corpuscular Hemoglobin Concent 35 g/dL (31-37) Red Cell Distribution Width 14.5 % (11.5-14.5) Platelet Count 297 x10^3/uL (140-400) Neutrophils (%) (Auto) 66 % (31-73) Lymphocytes (%) (Auto) 25 % (24-48) Monocytes (%) (Auto) 6 % (0-9) Eosinophils (%) (Auto) 2 % (0-3) Basophils (%) (Auto) 1 % (0-3) Neutrophils # (Auto) 5.9 x10^3uL (1.8-7.7) Lymphocytes # (Auto) 2.2 x10^3/uL (1.0-4.8) Monocytes # (Auto) 0.5 x10^3/uL (0.0-1.1) Eosinophils # (Auto) 0.2 x10^3/uL (0.0-0.7) Basophils # (Auto) 0.1 x10^3/uL (0.0-0.2) Prothrombin Time 13.0 SEC (11.7-14.0) Prothromb Time International Ratio 1.0 (0.8-1.1) Activated Partial Thromboplast Time 32 SEC (24-38) D-Dimer (Larisa) 0.62 ug/mlFEU (0.00-0.50) Sodium Level 140 mmol/L (136-145) Potassium Level 4.6 mmol/L (3.5-5.1) Chloride Level 104 mmol/L (98-107) Carbon Dioxide Level 29 mmol/L (21-32) Anion Gap 7 (6-14) Blood Urea Nitrogen 16 mg/dL (7-20) Creatinine 0.8 mg/dL (0.6-1.0) Estimated GFR (Cockcroft-Gault) 77.2 Glucose Level 86 mg/dL (70-99) Calcium Level 9.3 mg/dL (8.5-10.1) Troponin I Quantitative < 0.017 ng/mL (0.000-0.055) XN-Ylk-H-Type Natriuretic Peptide 23 pg/mL (0-124) VTE Prophylaxis Ordered VTE Prophylaxis Devices: Yes VTE Pharmacological Prophylaxi: Yes Assessment/Plan Assessment/Plan Moderate-sized spontaneous pneumothorax right side Smoker Obesity, BMI 39 Plan: Okay for diet today, nothing by mouth post midnight in case chest x-ray tomorrow shows worsening IR will consult if chest tube placement is needed NSAIDs when necessary Some Xanax when necessary Nicotine patch Smoking cessation done one-to-one today - Family has witnessed Discussed with her, agrees with plan DHRUV CAMPOVERDE MD Feb 06, 2018 14:35
[2018-02-06] MEDS ORDERED: clonazePAM 0.5 MG TABLET PO PRN (14:45)
--- NOTE | 2018-02-06 14:55 | EKG ---
[facility] [address] [place] [address] Test Date: 2018-02-06 Test Time: 09:59:01 Pat Name: WISCONSIN FIELD Department: Room: 432 1 Gender: F Chain [employer] Control: : 1970 Requested By: KIKI LYONS Order Number: [id number] Reading MD: Adams Stephens MD Measurements Intervals [place] Rate: 76 P: 108 MA: 136 QRS: 161 QRSD: 84 T: 138 QT: 364 QTc: 414 Interpretive Statements SINUS RHYTHM LIMB LEAD MISPLACEMENT Electronically Signed On 02-07-2018 11:44:35 CDT by Adams Stephens MD
--- NOTE | 2018-02-06 15:00 | PDOC ---
PULMONARY PROGRESS NOTES Vitals Vital Signs Date Time Temp Pulse Resp B/P (MAP) Pulse Ox O2 Delivery O2 Flow Rate FiO2 02/06/18 13:48 74 97 NonRebreather Mask 02/06/18 13:10 18 159/71 (100) 15.0 02/06/18 10:05 97.7 97.7 Cardiovascular: S1, S2 Labs Laboratory Tests Test 02/06/18 10:05 White Blood Count 8.9 x10^3/uL (4.0-11.0) Red Blood Count 5.10 x10^6/uL (3.50-5.40) Hemoglobin 15.3 g/dL (12.0-15.5) Hematocrit 43.7 % (36.0-47.0) Mean Corpuscular Volume 86 fL (79-100) Mean Corpuscular Hemoglobin 30 pg (25-35) Mean Corpuscular Hemoglobin Concent 35 g/dL (31-37) Red Cell Distribution Width 14.5 % (11.5-14.5) Platelet Count 297 x10^3/uL (140-400) Neutrophils (%) (Auto) 66 % (31-73) Lymphocytes (%) (Auto) 25 % (24-48) Monocytes (%) (Auto) 6 % (0-9) Eosinophils (%) (Auto) 2 % (0-3) Basophils (%) (Auto) 1 % (0-3) Neutrophils # (Auto) 5.9 x10^3uL (1.8-7.7) Lymphocytes # (Auto) 2.2 x10^3/uL (1.0-4.8) Monocytes # (Auto) 0.5 x10^3/uL (0.0-1.1) Eosinophils # (Auto) 0.2 x10^3/uL (0.0-0.7) Basophils # (Auto) 0.1 x10^3/uL (0.0-0.2) Prothrombin Time 13.0 SEC (11.7-14.0) Prothromb Time International Ratio 1.0 (0.8-1.1) Activated Partial Thromboplast Time 32 SEC (24-38) D-Dimer (Larisa) 0.62 ug/mlFEU (0.00-0.50) Sodium Level 140 mmol/L (136-145) Potassium Level 4.6 mmol/L (3.5-5.1) Chloride Level 104 mmol/L (98-107) Carbon Dioxide Level 29 mmol/L (21-32) Anion Gap 7 (6-14) Blood Urea Nitrogen 16 mg/dL (7-20) Creatinine 0.8 mg/dL (0.6-1.0) Estimated GFR (Cockcroft-Gault) 77.2 Glucose Level 86 mg/dL (70-99) Calcium Level 9.3 mg/dL (8.5-10.1) Troponin I Quantitative < 0.017 ng/mL (0.000-0.055) SK-Zoq-R-Type Natriuretic Peptide 23 pg/mL (0-124) Laboratory Tests Test 02/06/18 10:05 White Blood Count 8.9 x10^3/uL (4.0-11.0) Red Blood Count 5.10 x10^6/uL (3.50-5.40) Hemoglobin 15.3 g/dL (12.0-15.5) Hematocrit 43.7 % (36.0-47.0) Mean Corpuscular Volume 86 fL (79-100) Mean Corpuscular Hemoglobin 30 pg (25-35) Mean Corpuscular Hemoglobin Concent 35 g/dL (31-37) Red Cell Distribution Width 14.5 % (11.5-14.5) Platelet Count 297 x10^3/uL (140-400) Neutrophils (%) (Auto) 66 % (31-73) Lymphocytes (%) (Auto) 25 % (24-48) Monocytes (%) (Auto) 6 % (0-9) Eosinophils (%) (Auto) 2 % (0-3) Basophils (%) (Auto) 1 % (0-3) Neutrophils # (Auto) 5.9 x10^3uL (1.8-7.7) Lymphocytes # (Auto) 2.2 x10^3/uL (1.0-4.8) Monocytes # (Auto) 0.5 x10^3/uL (0.0-1.1) Eosinophils # (Auto) 0.2 x10^3/uL (0.0-0.7) Basophils # (Auto) 0.1 x10^3/uL (0.0-0.2) Prothrombin Time 13.0 SEC (11.7-14.0) Prothromb Time International Ratio 1.0 (0.8-1.1) Activated Partial Thromboplast Time 32 SEC (24-38) D-Dimer (Larisa) 0.62 ug/mlFEU (0.00-0.50) Sodium Level 140 mmol/L (136-145) Potassium Level 4.6 mmol/L (3.5-5.1) Chloride Level 104 mmol/L (98-107) Carbon Dioxide Level 29 mmol/L (21-32) Anion Gap 7 (6-14) Blood Urea Nitrogen 16 mg/dL (7-20) Creatinine 0.8 mg/dL (0.6-1.0) Estimated GFR (Cockcroft-Gault) 77.2 Glucose Level 86 mg/dL (70-99) Calcium Level 9.3 mg/dL (8.5-10.1) Troponin I Quantitative < 0.017 ng/mL (0.000-0.055) YF-Laj-K-Type Natriuretic Peptide 23 pg/mL (0-124) Medications Active Scripts Medications Dose Route/Sig Max Daily Dose Days Date Category Tessalon Perle (Benzonatate) 100 Mg Capsule 100 Mg PO TID PRN 03/12/17 Rx Azithromycin Tablet (Azithromycin) 250 Mg Tablet 1 Pkg PO UD 03/12/17 Rx Prednisone 50 Mg Tablet 1 Tab PO DAILY 03/12/17 Rx Proair Hfa Inhaler (Albuterol Sulfate) 8.5 Gm Hfa.aer.ad 1 Puff INH PRN Q6HRS PRN 03/12/17 Rx Clindamycin Hcl 300 Mg Capsule 300 Mg PO QID 10 02/27/17 Rx Medrol (Methylprednisolone) 4 Mg Tab.ds.pk 1 Pkg PO UD 09/24/16 Rx Ultram (Tramadol Hcl) 50 Mg Tablet 1 Tab PO Q6HRS 09/24/16 Rx Robaxin (Methocarbamol) 500 Mg Tablet 1 Tab PO TID 09/24/16 Rx Ibuprofen 800 Mg Tablet 800 Mg PO PRN Q6HRS PRN 05/30/16 Rx Tessalon Perle (Benzonatate) 100 Mg Capsule 100 Mg PO TID PRN 05/30/16 Rx Zithromax (Azithromycin) 250 Mg Tablet 1 Pkg PO UD 05/30/16 Rx Proair Hfa Inhaler (Albuterol Sulfate) 8.5 Gm Hfa.aer.ad 1 Puff INH PRN Q6HRS PRN 05/30/16 Rx Tessalon Perle (Benzonatate) 100 Mg Capsule 100 Mg PO TID PRN 04/15/16 Rx Flonase Allergy Relief (Fluticasone Propionate) 9.9 Ml [place].susp 2 Sprays NS DAILY 04/15/16 Rx Bactrim Ds Tablet (Sulfamethoxazole/Trimethoprim) 1 Each Tablet 1 Tab PO BID 11/26/15 Rx Ibuprofen 600 Mg Tablet 600 Mg PO PRN Q6HRS PRN 11/26/15 Rx Advil (Ibuprofen) 200 Mg Capsule 200 Mg PO 12/02/13 Reported Impression . DICTATED A/ RESP FAILURE PNEUMONIA ASPIRATION THANKS RIN FERNANDEZ MD Feb 06, 2018 15:00
[2018-02-06 19:15] VITALS: BP 108/58
[2018-02-06 23:16] VITALS: BP 133/68
--- NOTE | 2018-02-07 00:12 | CONS ---
DATE OF CONSULTATION: 02/06/2018 ATTENDING PHYSICIAN: Dr. Schneider. REASON FOR CONSULTATION: The patient is seen in pulmonary consultation at the request of Dr. Schneider for pneumothorax. HISTORY OF PRESENT ILLNESS: The patient is a 47-year-old female with a history of COPD, tobacco dependent. She presented with left-sided chest discomfort, was seen in the Emergency Room. CT angiogram revealed no evidence of pulmonary emboli and revealed a moderate sized pneumothorax. She is currently on no oxygen supplementation. She is in no respiratory distress. She denies fever or chills. She has a cough productive of some discolored sputum. She smokes less than a pack of cigarettes a day. PAST MEDICAL HISTORY: 1. Tobacco dependence, COPD, undiagnosed. 2. Previous history of hepatitis, status post treatment. 3. Cirrhosis. 4. Sinusitis. PAST SURGICAL HISTORY: Status post . SOCIAL HISTORY: She smokes. FAMILY HISTORY: No family history of lung disorders. REVIEW OF SYSTEMS: CONSTITUTIONAL: Denies fever. EYES: No change in visual acuity. HEENT: No nasal congestion or sore throat. RESPIRATORY: As indicated above. CARDIOVASCULAR: No chest pain or pressure. GASTROINTESTINAL: No nausea, vomiting or diarrhea. GENITOURINARY: No dysuria or frequency. MUSCULOSKELETAL: No localized muscle aches or joint pains. SKIN: No new skin rashes. NEUROLOGIC: No headaches, diplopia or blurred vision. CURRENT MEDICATIONS: List was reviewed. ALLERGIES: MORPHINE AND PENICILLIN. PHYSICAL EXAMINATION: GENERAL: Morbid obese individual with a body mass index of 38 and O2 saturation currently greater than 92% on room air. HEENT: Eyes, the sclerae were nonicteric. NECK: Jugular venous distention was not elevated. No lymphadenopathy. CHEST: Full expansion. LUNGS: Adequate airway flow with no wheezes. CARDIOVASCULAR: Regular rate and rhythm with S1, S2, no S3. ABDOMEN: Soft, nontender, nondistended. EXTREMITIES: No clubbing, cyanosis or edema. NEUROLOGIC: The patient was awake, alert, following commands. A detailed neuro exam was not performed. LABORATORY DATA: Reviewed. INR was 1.0. Electrolytes were normal. CT as indicated above. IMPRESSION: 1. Spontaneous pneumothorax. 2. Acute exacerbation of chronic obstructive pulmonary disease. 3. Tobacco dependence. 4. Morbid obesity. 5. History of hepatitis. PLAN: 1. We will proceed with asking interventional radiologist to place a chest tube. 2. The patient currently not in any respiratory distress. It is not urgent to place a chest tube at this time. 3. Pain management. 4. Discontinue tobacco use. 5. Prednisone and nebulized treatments. I do appreciate the privilege in sharing in this patient's care. RIN FERNANDEZ MD DR: CHARY/isaiah JOB#: [id number] / [id number]
[2018-02-07 03:07] VITALS: BP 123/72
[2018-02-07] MEDS: IV NORMAL SALINE 1000ML BAG 1,000 ML IV SCH ×2 (05:49→09:50)
[2018-02-07 07:00] VITALS: BP 112/49
--- NOTE | 2018-02-07 08:05 | RAD ---
Indication:PNEUMOTHORAX TECHNIQUE:Portable AP chest X-ray COMPARISON:02/06/2018 FINDINGS: Heart is normal in size. Small right apical pneumothorax, slightly decreased in size in comparison to previous exam. Mild right basilar patchy opacities. No mediastinal shift. Visualized bony thorax within normal limits. IMPRESSION: Slight interval decrease in the size of right apical pneumothorax from previous exam. Electronically signed by: Jean Serrano DO (02/07/2018 8:01 AM) [facility]
[2018-02-07] MEDS ORDERED: predniSONE 20 MG TABLET PO SCH (09:00)
--- NOTE | 2018-02-07 09:15 | PDOC ---
PULMONARY PROGRESS NOTES Subjective PT NOT MORE SOA FEELS BETTER NO CHEST PAIN Vitals Vital Signs Date Time Temp Pulse Resp B/P (MAP) Pulse Ox O2 Delivery O2 Flow Rate FiO2 02/07/18 07:00 96.4 86 18 112/49 (70) 96 Nasal Cannula 15.0 96.4 Cardiovascular: S1, S2 Labs Laboratory Tests Test 02/06/18 10:05 White Blood Count 8.9 x10^3/uL (4.0-11.0) Red Blood Count 5.10 x10^6/uL (3.50-5.40) Hemoglobin 15.3 g/dL (12.0-15.5) Hematocrit 43.7 % (36.0-47.0) Mean Corpuscular Volume 86 fL (79-100) Mean Corpuscular Hemoglobin 30 pg (25-35) Mean Corpuscular Hemoglobin Concent 35 g/dL (31-37) Red Cell Distribution Width 14.5 % (11.5-14.5) Platelet Count 297 x10^3/uL (140-400) Neutrophils (%) (Auto) 66 % (31-73) Lymphocytes (%) (Auto) 25 % (24-48) Monocytes (%) (Auto) 6 % (0-9) Eosinophils (%) (Auto) 2 % (0-3) Basophils (%) (Auto) 1 % (0-3) Neutrophils # (Auto) 5.9 x10^3uL (1.8-7.7) Lymphocytes # (Auto) 2.2 x10^3/uL (1.0-4.8) Monocytes # (Auto) 0.5 x10^3/uL (0.0-1.1) Eosinophils # (Auto) 0.2 x10^3/uL (0.0-0.7) Basophils # (Auto) 0.1 x10^3/uL (0.0-0.2) Prothrombin Time 13.0 SEC (11.7-14.0) Prothromb Time International Ratio 1.0 (0.8-1.1) Activated Partial Thromboplast Time 32 SEC (24-38) D-Dimer (Larisa) 0.62 ug/mlFEU (0.00-0.50) Sodium Level 140 mmol/L (136-145) Potassium Level 4.6 mmol/L (3.5-5.1) Chloride Level 104 mmol/L (98-107) Carbon Dioxide Level 29 mmol/L (21-32) Anion Gap 7 (6-14) Blood Urea Nitrogen 16 mg/dL (7-20) Creatinine 0.8 mg/dL (0.6-1.0) Estimated GFR (Cockcroft-Gault) 77.2 Glucose Level 86 mg/dL (70-99) Calcium Level 9.3 mg/dL (8.5-10.1) Troponin I Quantitative < 0.017 ng/mL (0.000-0.055) EA-Gzj-F-Type Natriuretic Peptide 23 pg/mL (0-124) Laboratory Tests Test 02/06/18 10:05 White Blood Count 8.9 x10^3/uL (4.0-11.0) Red Blood Count 5.10 x10^6/uL (3.50-5.40) Hemoglobin 15.3 g/dL (12.0-15.5) Hematocrit 43.7 % (36.0-47.0) Mean Corpuscular Volume 86 fL (79-100) Mean Corpuscular Hemoglobin 30 pg (25-35) Mean Corpuscular Hemoglobin Concent 35 g/dL (31-37) Red Cell Distribution Width 14.5 % (11.5-14.5) Platelet Count 297 x10^3/uL (140-400) Neutrophils (%) (Auto) 66 % (31-73) Lymphocytes (%) (Auto) 25 % (24-48) Monocytes (%) (Auto) 6 % (0-9) Eosinophils (%) (Auto) 2 % (0-3) Basophils (%) (Auto) 1 % (0-3) Neutrophils # (Auto) 5.9 x10^3uL (1.8-7.7) Lymphocytes # (Auto) 2.2 x10^3/uL (1.0-4.8) Monocytes # (Auto) 0.5 x10^3/uL (0.0-1.1) Eosinophils # (Auto) 0.2 x10^3/uL (0.0-0.7) Basophils # (Auto) 0.1 x10^3/uL (0.0-0.2) Prothrombin Time 13.0 SEC (11.7-14.0) Prothromb Time International Ratio 1.0 (0.8-1.1) Activated Partial Thromboplast Time 32 SEC (24-38) D-Dimer (Larisa) 0.62 ug/mlFEU (0.00-0.50) Sodium Level 140 mmol/L (136-145) Potassium Level 4.6 mmol/L (3.5-5.1) Chloride Level 104 mmol/L (98-107) Carbon Dioxide Level 29 mmol/L (21-32) Anion Gap 7 (6-14) Blood Urea Nitrogen 16 mg/dL (7-20) Creatinine 0.8 mg/dL (0.6-1.0) Estimated GFR (Cockcroft-Gault) 77.2 Glucose Level 86 mg/dL (70-99) Calcium Level 9.3 mg/dL (8.5-10.1) Troponin I Quantitative < 0.017 ng/mL (0.000-0.055) YF-Oxr-C-Type Natriuretic Peptide 23 pg/mL (0-124) Medications Active Scripts Medications Dose Route/Sig Max Daily Dose Days Date Category Tessalon Perle (Benzonatate) 100 Mg Capsule 100 Mg PO TID PRN 03/12/17 Rx Azithromycin Tablet (Azithromycin) 250 Mg Tablet 1 Pkg PO UD 03/12/17 Rx Prednisone 50 Mg Tablet 1 Tab PO DAILY 03/12/17 Rx Proair Hfa Inhaler (Albuterol Sulfate) 8.5 Gm Hfa.aer.ad 1 Puff INH PRN Q6HRS PRN 03/12/17 Rx Clindamycin Hcl 300 Mg Capsule 300 Mg PO QID 10 02/27/17 Rx Medrol (Methylprednisolone) 4 Mg Tab.ds.pk 1 Pkg PO UD 09/24/16 Rx Ultram (Tramadol Hcl) 50 Mg Tablet 1 Tab PO Q6HRS 09/24/16 Rx Robaxin (Methocarbamol) 500 Mg Tablet 1 Tab PO TID 09/24/16 Rx Ibuprofen 800 Mg Tablet 800 Mg PO PRN Q6HRS PRN 05/30/16 Rx Tessalon Perle (Benzonatate) 100 Mg Capsule 100 Mg PO TID PRN 05/30/16 Rx Zithromax (Azithromycin) 250 Mg Tablet 1 Pkg PO UD 05/30/16 Rx Proair Hfa Inhaler (Albuterol Sulfate) 8.5 Gm Hfa.aer.ad 1 Puff INH PRN Q6HRS PRN 05/30/16 Rx Tessalon Perle (Benzonatate) 100 Mg Capsule 100 Mg PO TID PRN 04/15/16 Rx Flonase Allergy Relief (Fluticasone Propionate) 9.9 Ml [place].susp 2 Sprays NS DAILY 04/15/16 Rx Bactrim Ds Tablet (Sulfamethoxazole/Trimethoprim) 1 Each Tablet 1 Tab PO BID 11/26/15 Rx Ibuprofen 600 Mg Tablet 600 Mg PO PRN Q6HRS PRN 11/26/15 Rx Advil (Ibuprofen) 200 Mg Capsule 200 Mg PO 12/02/13 Reported Impression . IMPRESSION: 1. Spontaneous pneumothorax, IMPROVE ON CXR D/W IR NO NEED FOR CHEST TUBE 2. Acute exacerbation of chronic obstructive pulmonary disease. 3. Tobacco dependence. 4. Morbid obesity. 5. History of hepatitis. Plan . D/W DR QUINONES HOME IN AM D/C SMOKING STEROIDS AND ANTIBX RIN FERNANDEZ MD Feb 07, 2018 09:15
[2018-02-07] MEDS ORDERED: ALBUTEROL SULFATE 2.5 MG/3 ML NEBU. NEB PRN (10:00)
[2018-02-07] MEDS ORDERED: ONDANSETRON PF 4 MG/2 ML VIAL. IV PRN (10:00)
[2018-02-07] MEDS ORDERED: DOCUSATE SODIUM 100 MG CAPSULE. PO PRN (10:00)
[2018-02-07] MEDS ORDERED: ACETAMINOPHEN 325 MG TABLET. PO PRN (10:00)
[2018-02-07] MEDS ORDERED: traMADol 50 MG TABLET PO PRN (10:00)
[2018-02-07 11:00] VITALS: BP 115/65
[2018-02-07] MEDS: IPRATRPIUM/ALBUTEROL 0.5/2.5MG 3 ML NEBU. NEB SCH ×2 (11:36→15:34)
--- NOTE | 2018-02-07 14:10 | PDOC ---
PROGRESS NOTES Chief Complaint Chief Complaint Moderate-sized spontaneous pneumothorax right side Smoker Obesity, BMI 39 plan: fu with pulm i talked to dr. Escobedo, no need chest tube now add duoneb, albuterol prn steroid as per pulm cough meds CXR daily dvt ppx History of Present Illness History of Present Illness ROS: no fever, chills, sob or chest pain feels no sob, chest pain, on non breather agitated refusing chest tube, wants go home Vitals Vitals Vital Signs Date Time Temp Pulse Resp B/P (MAP) Pulse Ox O2 Delivery O2 Flow Rate FiO2 02/07/18 11:43 94 Room Air 02/07/18 11:00 98.1 85 18 115/65 (82) 15.0 98.1 Physical Exam General: Alert, Oriented X3, Cooperative, No acute distress Heart: Regular rate, Normal S1, Normal S2 Lungs: Other (bl mild decreased bs) Abdomen: Normal bowel sounds, Soft, No tenderness, No hepatosplenomegaly, No masses Extremities: No clubbing, No cyanosis, No edema, Normal pulses, No tenderness/ swelling Skin: No rashes, No breakdown, No significant lesion Assessment and Plan Assessmemt and Plan Problems Medical Problems: (1) COPD (chronic obstructive pulmonary disease) Status: Acute (2) Spontaneous pneumothorax Status: Acute Comment Review of Relevant I have reviewed the following items sam (where applicable) has been applied. Labs Laboratory Tests Test 02/06/18 10:05 White Blood Count 8.9 x10^3/uL (4.0-11.0) Red Blood Count 5.10 x10^6/uL (3.50-5.40) Hemoglobin 15.3 g/dL (12.0-15.5) Hematocrit 43.7 % (36.0-47.0) Mean Corpuscular Volume 86 fL (79-100) Mean Corpuscular Hemoglobin 30 pg (25-35) Mean Corpuscular Hemoglobin Concent 35 g/dL (31-37) Red Cell Distribution Width 14.5 % (11.5-14.5) Platelet Count 297 x10^3/uL (140-400) Neutrophils (%) (Auto) 66 % (31-73) Lymphocytes (%) (Auto) 25 % (24-48) Monocytes (%) (Auto) 6 % (0-9) Eosinophils (%) (Auto) 2 % (0-3) Basophils (%) (Auto) 1 % (0-3) Neutrophils # (Auto) 5.9 x10^3uL (1.8-7.7) Lymphocytes # (Auto) 2.2 x10^3/uL (1.0-4.8) Monocytes # (Auto) 0.5 x10^3/uL (0.0-1.1) Eosinophils # (Auto) 0.2 x10^3/uL (0.0-0.7) Basophils # (Auto) 0.1 x10^3/uL (0.0-0.2) Prothrombin Time 13.0 SEC (11.7-14.0) Prothromb Time International Ratio 1.0 (0.8-1.1) Activated Partial Thromboplast Time 32 SEC (24-38) D-Dimer (Larisa) 0.62 ug/mlFEU (0.00-0.50) Sodium Level 140 mmol/L (136-145) Potassium Level 4.6 mmol/L (3.5-5.1) Chloride Level 104 mmol/L (98-107) Carbon Dioxide Level 29 mmol/L (21-32) Anion Gap 7 (6-14) Blood Urea Nitrogen 16 mg/dL (7-20) Creatinine 0.8 mg/dL (0.6-1.0) Estimated GFR (Cockcroft-Gault) 77.2 Glucose Level 86 mg/dL (70-99) Calcium Level 9.3 mg/dL (8.5-10.1) Troponin I Quantitative < 0.017 ng/mL (0.000-0.055) RX-Vid-I-Type Natriuretic Peptide 23 pg/mL (0-124) Medications Current Medications Albuterol/ Ipratropium (Duoneb) 3 ml 1X ONCE NEB Last administered on at 10:24; Start 02/06/18 at 10:15; Stop 02/06/18 at 10:16; Status DC Aspirin (Children'S Aspirin) 324 mg 1X ONCE PO Last administered on at 10:47; Start 02/06/18 at 10:15; Stop 02/06/18 at 10:16; Status DC Prednisone (Prednisone) 50 mg 1X ONCE PO Last administered on 02/06/18at 10:46 ; Start 02/06/18 at 10:15; Stop 02/06/18 at 10:16; Status DC Fentanyl Citrate (Fentanyl 2ml Vial) 75 mcg 1X ONCE IV Last administered on at 10:48; Start 02/06/18 at 10:15; Stop 02/06/18 at 10:16; Status DC Sodium Chloride 1,000 ml @ 1,000 mls/hr 1X ONCE IV Last administered on 02/06at 10:15; Start 02/06/18 at 10:15; Stop 02/06/18 at 11:14; Status DC Iohexol (Omnipaque 300 Mg/ml) 75 ml 1X ONCE IV Last administered on at 11:30; Start 02/06/18 at 11:30; Stop 02/06/18 at 11:31; Status DC Info (CONTRAST GIVEN -- Rx MONITORING) 1 each PRN DAILY PRN MC SEE COMMENTS; Start 02/06/18 at 11:45; Stop 02/08/18 at 11:44 Ibuprofen (Motrin) 800 mg 1X ONCE PO Last administered on 02/06/18at 13:08; Start 02/06/18 at 12:45; Stop 02/06/18 at 12:46; Status DC Acetaminophen/ Hydrocodone Bitart (Lortab 5/325) 2 tab 1X ONCE PO Last administered on 02/06/18at 13:08; Start 02/06/18 at 12:45; Stop 02/06/18 at 12 :46; Status DC Ondansetron HCl (Zofran) 4 mg PRN Q8HRS PRN IV NAUSEA/VOMITING; Start at 13:00; Stop 02/06/18 at 14:09; Status DC Fentanyl Citrate (Fentanyl 2ml Vial) 50 mcg PRN Q1HR PRN IV PAIN; Start at 13:00; Stop 02/07/18 at 12:59; Status DC Sodium Chloride 1,000 ml @ 100 mls/hr Q10H IV Last administered on 02/07/18at 05:49; Start 02/06/18 at 23:50; Stop 02/07/18 at 23:49 Lorazepam (Ativan) 0.5 mg PRN Q3HRS PRN IV ANXIETY Last administered on at 20:50; Start 02/06/18 at 14:00 Ondansetron HCl (Zofran) 4 mg PRN Q6HRS PRN IV NAUSEA/VOMITING; Start at 14:15; Stop 02/07/18 at 09:51; Status DC Ketorolac Tromethamine (Toradol 15mg Vial) 15 mg PRN Q6HRS PRN IV PAIN MODERATE ; Start 02/06/18 at 14:15; Stop 02/11/18 at 14:14 Acetaminophen (Tylenol) 500 mg PRN Q6HRS PRN PO MILD PAIN / TEMP; Start at 14:15; Stop 02/07/18 at 09:51; Status DC Acetaminophen/ Codeine Phosphate (Tylenol #3) 1 tab PRN Q6HRS PRN PO SEVERE PAIN; Start 02/06/18 at 14:15 Diphenhydramine HCl (Benadryl) 25 mg PRN QHS PRN PO INSOMNIA; Start 02/06/18 at 14:15 Nicotine (Nicoderm Cq 21mg) 1 patch PRN DAILY PRN TD SMOKING CESSATION Last administered on 02/06/18at 17:17; Start 02/06/18 at 14:15 Guaifenesin (Robitussin Dm) 10 ml PRN Q6HRS PRN PO COUGH; Start 02/06/18 at 14 :15 Clonazepam (KlonoPIN) 0.25 mg PRN QID PRN PO ANXIETY / AGITATION Last administered on 02/07/18at 05:49; Start 02/06/18 at 14:45 Prednisone (Prednisone) 30 mg DAILY PO ; Start 02/07/18 at 09:00 Acetaminophen (Tylenol) 650 mg PRN Q6HRS PRN PO FEVER; Start 02/07/18 at 10:00 Ondansetron HCl (Zofran) 4 mg PRN Q6HRS PRN IV NAUSEA/VOMITING; Start at 10:00 Tramadol HCl (Ultram) 50 mg PRN Q6HRS PRN PO MILD TO MODERATE PAIN; Start at 10:00 Docusate Sodium (Colace) 100 mg PRN DAILY PRN PO CONSTIPATION; Start 02/07/18 at 10:00 Albuterol/ Ipratropium (Duoneb) 3 ml RTQID NEB Last administered on 02/07/18at 11:36; Start 02/07/18 at 12:00 Albuterol Sulfate (Ventolin Neb Soln) 2.5 mg PRN Q2HR PRN NEB SHORTNESS OF BREATH; Start 02/07/18 at 10:00 Guaifenesin (Mucinex) 600 mg BID PO Last administered on 02/07/18at 12:23; Start 02/07/18 at 10:00 Active Scripts Active Tessalon Perle (Benzonatate) 100 Mg Capsule 100 Mg PO TID PRN Azithromycin Tablet (Azithromycin) 250 Mg Tablet 1 Pkg PO UD Prednisone 50 Mg Tablet 1 Tab PO DAILY Proair Hfa Inhaler (Albuterol Sulfate) 8.5 Gm Hfa.aer.ad 1 Puff INH PRN Q6HRS PRN Clindamycin Hcl 300 Mg Capsule 300 Mg PO QID 10 Days Medrol (Methylprednisolone) 4 Mg Tab.ds.pk 1 Pkg PO UD Ultram (Tramadol Hcl) 50 Mg Tablet 1 Tab PO Q6HRS Robaxin (Methocarbamol) 500 Mg Tablet 1 Tab PO TID Ibuprofen 800 Mg Tablet 800 Mg PO PRN Q6HRS PRN Tessalon Perle (Benzonatate) 100 Mg Capsule 100 Mg PO TID PRN Zithromax (Azithromycin) 250 Mg Tablet 1 Pkg PO UD Proair Hfa Inhaler (Albuterol Sulfate) 8.5 Gm Hfa.aer.ad 1 Puff INH PRN Q6HRS PRN Tessalon Perle (Benzonatate) 100 Mg Capsule 100 Mg PO TID PRN Flonase Allergy Relief (Fluticasone Propionate) 9.9 Ml [place].susp 2 Sprays NS DAILY Bactrim Ds Tablet (Sulfamethoxazole/Trimethoprim) 1 Each Tablet 1 Tab PO BID Ibuprofen 600 Mg Tablet 600 Mg PO PRN Q6HRS PRN Reported Advil (Ibuprofen) 200 Mg Capsule 200 Mg PO Vitals/I & O Vital Sign - Last 24 Hours 02/06/18 02/06/18 02/06/18 02/06/18 14:10 18:23 19:15 20:00 Temp 98.4 98.5 98.4 98.5 Pulse 74 117 Resp 24 18 B/P (MAP) 131/63 (85) 108/58 (75) Pulse Ox 91 97 O2 Delivery Venturi Mask Non-Rebreather NonRebreather Mask Non-Rebreather O2 Flow Rate 15.0 15.0 15.0 02/06/18 02/07/18 02/07/18 02/07/18 23:16 03:07 07:00 11:00 Temp 97.9 98.0 96.4 98.1 97.9 98.0 96.4 98.1 Pulse 89 100 86 85 Resp 18 18 B/P (MAP) 133/68 (89) 123/72 (89) 112/49 (70) 115/65 (82) Pulse Ox 99 100 96 96 O2 Delivery NonRebreather Mask NonRebreather Mask Nasal Cannula Nasal Cannula O2 Flow Rate 15.0 15.0 15.0 15.0 02/07/18 11:43 Pulse Ox 94 O2 Delivery Room Air Intake and Output 02/06/18 02/06/18 02/07/18 15:00 23:00 07:00 Intake Total 200 ml 680 ml Balance 200 ml 680 ml PEPE QUINONES MD Feb 07, 2018 14:10
[2018-02-07] MEDS ORDERED: HEPARIN for SUB-Q USE 5,000 UNIT/ML VIAL. SQ SCH (14:30)
--- NOTE | 2018-02-07 14:59 | PDOC3 ---
Discharge Summary [facility] Date of Admission: Feb 06, 2018 Discharge Date: Feb 07, 2018 Admitting Diagnosis Moderate-sized spontaneous pneumothorax right side Smoker Obesity, BMI 39 Final Diagnosis CONSULTS hakeem Brief Hospital Course Ms. Wheeler is a 47 old F, Smoker , came yesterday for chest pain ,sob. CXR, CT showed moderate rt side pneumothorax. CXR improved slightly today. pt has no sob, chest pain, on NC now. however, pt has been very agitated, refused chest tube overnight which was possible for am , and insisted to go out of the room to smoke without listening to floor staff advice. i talked to dr. Escobedo before, plan to dc tmr. however, floor nurse called now saying nurse information systems supervisor notified dr. Escobedo pt' s behavior and dr. Escobedo said ok to dc now. dc home, dc time 35min. Disposition home CONDITION AT DISCHARGE: Improved Scheduled Azithromycin (Zithromax), 1 PKG PO UD Azithromycin (Azithromycin Tablet), 1 PKG PO UD Clindamycin Hcl (Clindamycin Hcl), 300 MG PO QID Fluticasone Propionate (Flonase Allergy Relief), 2 SPRAYS NS DAILY Methocarbamol (Robaxin), 1 TAB PO TID Methylprednisolone (Medrol), 1 PKG PO UD Prednisone (Prednisone), 1 TAB PO DAILY Sulfamethoxazole/Trimethoprim (Bactrim Ds Tablet), 1 TAB PO BID Tramadol Hcl (Ultram), 1 TAB PO Q6HRS Scheduled PRN Albuterol Sulfate (Proair Hfa Inhaler), 1 PUFF INH PRN Q6HRS PRN for SHORTNESS OF BREATH Albuterol Sulfate (Proair Hfa Inhaler), 1 PUFF INH PRN Q6HRS PRN for SHORTNESS OF BREATH Benzonatate (Tessalon Perle), 100 MG PO TID PRN for COUGH Benzonatate (Tessalon Perle), 100 MG PO TID PRN for COUGH Benzonatate (Tessalon Perle), 100 MG PO TID PRN for COUGH Ibuprofen (Ibuprofen), 600 MG PO PRN Q6HRS PRN for INFLAMMATION Ibuprofen (Ibuprofen), 800 MG PO PRN Q6HRS PRN for INFLAMMATION Miscellaneous Medications Ibuprofen (Advil), 200 MG PO, (Reported) PEPE QUINONES MD Feb 07, 2018 14:59
[2018-02-07 15:00] VITALS: BP 109/60
== END 2018-02-07 15:45 | disposition home or self-care (01) | DRG 177 ==
LOC: ER 09:49 → 4 NORTH 12:35
PROVIDERS: ADMIT Internal Medicine; ATTEND Internal Medicine
DX: J69.0 Pneumonitis due to inhalation of food and vomit (principal); J96.00 Acute respiratory failure, unspecified whether with hypoxia or hypercapnia; J93.83 Other pneumothorax; J44.1 Chronic obstructive pulmonary disease with (acute) exacerbation; J44.0 Chronic obstructive pulmonary disease with (acute) lower respiratory infection; K74.60 Unspecified cirrhosis of liver; F32.9 Major depressive disorder, single episode, unspecified; F17.210 Nicotine dependence, cigarettes, uncomplicated; E66.01 Morbid (severe) obesity due to excess calories; F41.9 Anxiety disorder, unspecified; Z68.39 Body mass index [BMI] 39.0-39.9, adult; Z98.891 History of uterine scar from previous surgery; Z88.6 Allergy status to analgesic agent; Z88.0 Allergy status to penicillin; Z88.8 Allergy status to other drugs, medicaments and biological substances
CPT/HCPCS: 36415; 71045; 71275; 80048; 83880; 84484; 85025; 85379; 85610; 85730; 93005; 94640; 94760; 96361; 96374; J2060; J3010; J7030; J7512; J7620; Q9967; 99285-25

== ENCOUNTER 2019-02-28 16:47 | Emergency (ER) | payer OTHER ==
[~2019-02-28] VITALS: Ht 165.1 cm; Wt 116.1 kg
[~2019-02-28 16:47] MED LIST changes: +ALBU2.5V8 INH; -PROAIR HFA8.5 GM INH
[2019-02-28 17:27] VITALS: BP 147/76
[2019-02-28 17:40] LABS: BILIRUBIN,URINE NEGATIVE (NEG); CLARITY,URINE CLEAR; COLOR,URINE YELLOW; NITRITE,URINE NEGATIVE (NEG); PH,URINE 6.5; PROTEIN,URINE NEGATIVE (NEG-TRACE)
--- NOTE | 2019-02-28 17:42 | PHYS DOC ---
Past Medical History Past Medical History: Hepatitis, Sinusitis Additional Past Medical Histor: hep C, stage 2 cirrhosis (TOYIN MA APRN) Past Surgical History: (TOYIN MA APRN) Smoking: Cigarettes, Less than 1pk/day Alcohol Use: None Drug Use: None (TOYIN MA APRN) Adult General Chief Complaint Chief Complaint: VAGINAL BLEEDING HPI HPI Patient is a 48 year old female, accompanied by her daughter, who presents to the ER with complaints of vaginal bleeding that started today. Patient states she has not had a menstrual cycle in over 3 years. She states that she had intercourse approximately 2 days ago but denies any bleeding until today. Patient states there is constant pressure in her pelvic area and she has had in creased difficulty emptying her bladder, increased frequency, and urgency. She denies any dysuria, hematuria, irregular vaginal discharge, vaginal itching, or vaginal odor. Patient also denies any fever, cough, shortness of breath, wheezing, chest pain, palpitations, nausea, vomiting, diarrhea, low back pain, or abdominal pain. She denies any pain at this time. All other ROS is neg unless otherwise noted in HPI. (TOYIN MA APRN) Review of Systems Review of Systems See Above (TOYIN MA APRN) Allergies Allergies Allergies Coded Allergies Type Severity Reaction Last Updated Verified Penicillins Allergy Severe Anaphylaxis 09/24/14 Yes morphine Adverse Reaction Intermediate N/V 02/06/18 Yes (CHINA ARVIZU DO) Physical Exam Physical Exam See Above Constitutional: Well developed, well nourished, no acute distress, non-toxic appearance. [] HENT: Normocephalic, atraumatic, bilateral external ears normal, oropharynx moist, no oral exudates, nose normal. [] Eyes: PERRLA, EOMI, conjunctiva normal, no discharge. [] Neck: Normal range of motion, no stridor. [] Lungs & Thorax: Respirations even and unlabored, no retractions, no respiratory distress Pelvic Exam: Diet Tech present Yarely RN Abdomen: Nontender, soft External Genitalia: Normal Skin Speculum: Normal vaginal mucosa, a scant amount of dark red blood noted in vaginal canal, no active abnormal discharge from cervix noted Bimanual: No adnexal masses or tenderness, No CMT; fullness noted a nteriorly suspicious for bladder prolapse Skin: Warm, dry, no erythema, no rash. [] Extremities: No cyanosis, ROM intact, no edema. [] Neurologic: Alert and oriented X 3, no focal deficits noted. [] Psychologic: Affect normal, judgement normal, mood normal. [] (TOYIN MA APRN) Current Patient Data Vital Signs Vital Signs Date Time Temp Pulse Resp B/P (MAP) Pulse Ox O2 Delivery O2 Flow Rate FiO2 02/28/19 17:27 98.6 73 16 147/76 (99) 99 Room Air 98.6 (CHINA ARVIZU DO) Lab Values Laboratory Tests Test 02/28/19 17:15 02/28/19 17:17 Urine Collection Type Unknown Urine Color Yellow Urine Clarity Clear Urine pH 6.5 Urine Specific [place] 1.020 Urine Protein Negative mg/dL (NEG-TRACE) Urine Glucose (UA) Negative mg/dL (NEG) Urine Ketones (Stick) Negative mg/dL (NEG) Urine Blood Large (NEG) Urine Nitrite Negative (NEG) Urine Bilirubin Negative (NEG) Urine Urobilinogen Dipstick 1.0 mg/dL (0.2 mg/dL) Urine Leukocyte Esterase Small (NEG) Urine RBC 6-10 /HPF (0-2) Urine WBC 20-40 /HPF (0-4) Urine Squamous Epithelial Cells Many /LPF Urine Bacteria Moderate /HPF (0-FEW) Urine Mucus Marked /LPF POC Urine HCG, Qualitative Hcg negative (Negative) (CHINA ARVIZU DO) EKG EKG [] (TOYIN MA APRN) Radiology/Procedures Radiology/Procedures PROCEDURE: TRANSVAGINAL STUDY: Ultrasound transvaginal HISTORY: Pelvic pressure. Vaginal bleeding. COMPARISON: None. TECHNIQUE: Complete pelvic ultrasound was performed with transabdominal and transvaginal probes. FINDINGS: The uterus measures 9.9 x 4.9 x 4.0 cm. The endometrium is thickened measuring up to 1.3 cm. No hypervascularity along the endometrial canal. No uterine mass. Cystic structures with complexity at the cervix most compatible with nabothian cysts. The left ovary measures 1.2 x 2.4 x 1.5 cm. Normal Doppler flow is maintained. The right ovary is not well evaluated but appears to measure approximately 2.2 x 1.8 x 1.9 cm. Though difficult to evaluate, there does appear to be Doppler flow to the right ovary. No suspicious cyst or mass bilaterally. No free fluid. IMPRESSION: 1. Nonspecific thickening of the endometrium measuring up to 1.3 cm. Given patient age and presumed premenopausal status, this is likely within the broad range of normal. There are no findings to suggest an endometrial mass or blood products along the endometrial canal. 2. Unremarkable left ovary. The right ovary is difficult to evaluate but appears within normal limits as well. Doppler flow is maintained. 3. Cystic foci with internal heterogeneous echotexture at the cervix most compatible with complex nabothian cysts.[] (TOYIN MA APRN) Course & Med Decision Making Course & Med Decision Making Pertinent Labs and Imaging studies reviewed. (See chart for details) [] (TOYIN MA APRN) Dragon Disclaimer Dragon Disclaimer This electronic medical record was generated, in whole or in part, using a voice recognition dictation system. (TOYIN MA APRN) Departure Departure Impression: Primary Impression: UTI (urinary tract infection) Disposition: HOME, SELF-CARE Condition: STABLE Referrals: UNKNOWN PCP NAME (PCP) Patient Instructions: Urinary Tract Infection, [id number] Additional Instructions: Fill prescription(s) and use as directed. Avoid bladder irritants such as caffeine, carbonation, and spicy foods. Increase clear fluids. Follow up with your OBGyn for further evaluation, return to the ER if symptoms worsen. Scripts Ciprofloxacin (CIPRO) 250 Mg/5 Ml [facility]..rec 1 TAB PO BID for 3 Days, #6 TAB 0 Refills Prov: TOYIN MA APRN 02/28/19 Attending Signature Attending Signature I have reviewed the PA/BAKER BISCUIT's note and plan of care. I was available for consultation as needed during the patient's visit in the emergency department. I agree with the clinical impression, plan, and disposition. (CHINA ARVIZU DO) Problem Qualifiers Primary Impression: UTI (urinary tract infection) Urinary tract infection type: acute cystitis Hematuria presence: with hematuria Qualified Codes: N30.01 - Acute cystitis with hematuria TOYIN MA APRN Feb 28, 2019 17:41 CHINA ARVIZU DO Mar 02, 2019 14:05
[2019-02-28 17:48] LABS: BACTERIA,URINE MODERATE /HPF (0-FEW); SQUAMOUS EPITHELIAL CELL,UR MANY /LPF; WBC,URINE 20-40 /HPF (0-4)
--- NOTE | 2019-02-28 19:32 | RAD ---
STUDY: Ultrasound transvaginal HISTORY: Pelvic pressure. Vaginal bleeding. COMPARISON: None. TECHNIQUE: Complete pelvic ultrasound was performed with transabdominal and transvaginal probes. FINDINGS: The uterus measures 9.9 x 4.9 x 4.0 cm. The endometrium is thickened measuring up to 1.3 cm. No hypervascularity along the endometrial canal. No uterine mass. Cystic structures with complexity at the cervix most compatible with nabothian cysts. The left ovary measures 1.2 x 2.4 x 1.5 cm. Normal Doppler flow is maintained. The right ovary is not well evaluated but appears to measure approximately 2.2 x 1.8 x 1.9 cm. Though difficult to evaluate, there does appear to be Doppler flow to the right ovary. No suspicious cyst or mass bilaterally. No free fluid. IMPRESSION: 1. Nonspecific thickening of the endometrium measuring up to 1.3 cm. Given patient age and presumed premenopausal status, this is likely within the broad range of normal. There are no findings to suggest an endometrial mass or blood products along the endometrial canal. 2. Unremarkable left ovary. The right ovary is difficult to evaluate but appears within normal limits as well. Doppler flow is maintained. 3. Cystic foci with internal heterogeneous echotexture at the cervix most compatible with complex nabothian cysts. Electronically signed by: SHAGGY JAMES MD (02/28/2019 7:29 PM) [facility]
[2019-02-28] MEDS ORDERED: CIPR250S2 PO (19:55)
== END 2019-02-28 20:15 | disposition home or self-care (01) ==
LOC: ER 16:47
DX: N30.01 Acute cystitis with hematuria (principal); F17.210 Nicotine dependence, cigarettes, uncomplicated; Z88.0 Allergy status to penicillin; Z88.5 Allergy status to narcotic agent
CPT/HCPCS: 76830; 81001; 81025; 87086; 99285-25